=== PATIENT | female | born 1985 | race Caucasian/White ===

== ENCOUNTER 2016-06-01 21:35 | Emergency (ER) | payer OTHER ==
[2016-06-01 21:44] VITALS: BP 121/67; PULSE 85; TEMP 99; BMI 25.1
[2016-06-01] MEDS ORDERED: OXYCODONE/APAP 5/325MG COMBO TABLET PO ONE (22:05)
[2016-06-01] MEDS ORDERED: OXYCODONE/APAP 5/325MG COMBO TABLET ONE (22:07)
--- NOTE | 2016-06-01 22:33 | PDOC ---
History of Present Illness - General Chief Complaint: Ear Problem Stated Complaint: LT EAR PAIN Time Seen by Provider: 06/01/16 21:46 History Source: Patient Exam Limitations: No Limitations - History of Present Illness Initial Comments: 06/01/16 22:30 30-year-old female presents to the ED with complaints of left ear pain despite being on antibiotics and drops for the past day and a half. Patient states for the past week has had pain so went to [facility] who prescribed her amoxicillin and Ciprodex. Patient states pain has not decreased and came here for pain control. Patient denies headache, neck pain, difficulty swallowing, or fever. Timing/Duration: 1 week Severity: moderate Associated Symptoms: denies: fever/chills Past History - Past Medical History Allergies/Adverse Reactions: Allergies Allergy/AdvReac Type Severity Reaction Status Date / Time No Known Allergies Allergy Verified 06/01/16 21:38 Home Medications: Ambulatory Orders Amoxicillin - [Amoxicillin 500mg Capsule -] 500 mg PO BID 06/01/16 Asthma: Yes Disorders: Yes (kidney stones) Kidney Stones: Yes Suicide Attempt (Hx): No - Reproductive History LMP Normal: Yes Is Patient Now?: No Tubal Ligation: No - Psycho/Social/Smoking Cessation Hx Anxiety: No Suicidal Ideation: No Smoking Status: Yes Smoking History: Never smoked Have you smoked in the past 12 months: No Number of Cigarettes Smoked Daily: 0 Information on smoking cessation initiated: No Hx Alcohol Use: No Drug/Substance Use Hx: No Substance Use Type: None Patient Lives Alone: No Lives with/in: spouse/SO Review of Systems - Review of Systems Able to Perform ROS?: Yes Constitutional: No: Symptoms Reported HEENTM: Yes: Ear Pain, Ear Discharge Respiratory: No: Symptoms reported Musculoskeletal: No: Neck Pain Integumentary: No: Symptoms Reported Neurological: No: Headache *Physical Exam - Vital Signs Last Vital Signs Temp Pulse Resp BP Pulse Ox 99.0 F 85 14 121/67 100 06/01/16 21:39 06/01/16 21:39 06/01/16 21:39 06/01/16 21:39 06/01/16 21:39 - Physical Exam General Appearance: Yes: Nourished, Appropriately Dressed. No: Apparent Distress HEENT: positive: EOMI, HELEN, Pharynx Normal, TM Erythema (With otitis externa to the left ear) Neck: negative: Lymphadenopathy (R), Lymphadenopathy (L) ED Treatment Course - Medications Given in the ED: ED Medications Discontinued Medications Generic Name Dose Route Start Last Admin Trade Name [place] PRN Reason Stop Dose Admin Oxycodone/Acetaminophen 1 combo 06/01/16 22:05 06/01/16 22:08 Percocet 5/325 - PO 06/01/16 22:06 1 combo ONCE ONE Administration Medical Decision Making - Medical Decision Making 06/01/16 22:30 Patient with otitis externa and media of the left ear. Patient on correct regimen for the above. Patient ordered for Percocet here and will send patient home with 6 tablets. Patient also will be given a referral to Dr. rachel if no resolution after course of antibiotics and drops transfer text *DC/Admit/Observation/Transfer Diagnosis at time of Disposition: Otitis externa of left ear Qualifiers: Otitis externa type: diffuse Chronicity: acute Qualified Code(s): H60.312 - Diffuse otitis externa, left ear Left otitis media Qualifiers: Otitis media type: unspecified Chronicity: unspecified Qualified Code(s): H66.92 - Otitis media, unspecified, left ear - Discharge Dispostion Disposition: HOME Condition at time of disposition: Good - Referrals Referrals: Sesar Bates MD [Primary Care Provider] - Thee Humphreys MD [Staff Physician] - - Patient Instructions Printed Discharge Instructions: DI for Otitis Externa Additional Instructions: Recommend using an ear wick with cotton to decrease noise and irritation to the ear canal changing it once daily. Take antibiotics and eardrops until completion. May take Percocet as needed for discomfort Follow-up with referred ENT specialist if symptoms continue after medication
== END 2016-06-01 22:35 | disposition home or self-care (01) ==
LOC: JERFT 21:35
DX: H60.312 Diffuse otitis externa, left ear (principal); H66.92 Otitis media, unspecified, left ear
CPT/HCPCS: 99281-25

== ENCOUNTER 2016-06-04 09:51 | Emergency (ER) | payer OTHER ==
[2016-06-04 10:18] VITALS: BP 122/65; PULSE 97; TEMP 98.2; BMI 24.1
--- NOTE | 2016-06-04 10:50 | PDOC ---
History of Present Illness - General Chief Complaint: Ear Problem Stated Complaint: LT EAR PAIN (REFERRED) Time Seen by Provider: 06/04/16 10:44 - History of Present Illness Initial Comments: 06/04/16 10:50 CHIEF COMPLAINT: r/o mastoiditis, sent in by ENT HISTORY OF PRESENT ILLNESS: 30 yo F with no PMH sent to ED by ENT. Per Dr. Edwards patient had a bad otitis media with rupture of TM and otitis externa. Wick was placed for drainage but now patient is complaining of pain behind ear and jaw. ENT would like to have patient evaluated with CT to r/o mastoiditis and to start IV antibiotics. No recent travel or sick contacts. PAST MEDICAL HISTORY: Denies past medical history FAMILY HISTORY: Denies SOCIAL HISTORY: "Rare" tobacco and alcohol use. Denies illicit drug use. SURGICAL HISTORY: Denies ALLERGIES: No known drug allergies REVIEW OF SYSTEMS General/Constitutional: Denies fever or chills. Denies weakness, weight change. HEENT: Painful left ear with swelling to jaw and behind ear. Cardiovascular: Denies chest pain or shortness of breath. Respiratory: Denies cough, wheezing, or hemoptysis. Gastrointestinal: Denies nausea, vomiting, diarrhea or constipation. Denies rectal bleeding. Genitourinary: Denies dysuria, frequency, or change in urination. Musculoskeletal: Denies joint or muscle swelling or pain. Denies neck or back pain. Skin and breasts: Denies rash or easy bruising. Neurologic: Denies headache, vertigo, loss of consciousness, or loss of sensation. PHYSICAL EXAM General Appearance: Well-appearing, appropriately dressed. No apparent distress , no intoxication. HEENT: Tenderness to left mastoid and posterior left ear. Perforated L TM with erythema, crusted drainage.welling to left auditory canal with brown discharge. EOMI, PERRLA, normal voice,pharynx normal. No conjunctival pallor. No photophobia, scleral icterus. Neck: Supple. Trachea midline. No tenderness, rigidity, carotid bruit, stridor , lymphadenopathy, or thyromegaly. Respiratory/Chest: Lungs CTAB. No shortness of breath, chest tenderness, respiratory distress, accessory muscle use. No crackles, rales, rhonchi, stridor , wheezing, dullness Cardiovascular: RRR. S1, S2. No JVD, murmur, bradycardia, tachycardia. Vascular Pulses: Dorsalis-Pedis (R): 2+, Dorsalis-Pedis (L): 2+ Gastrointestinal/Abdominal: Normal bowel sounds. Abdomen soft, non-distended. No tenderness or rebound tenderness. No organomegaly, pulsatile mass, guarding , hernia, hepatomegaly, splenomegaly. Lymphatic: No adenopathy, tenderness. Musculoskeletal/Extremities: Normal inspection. FROM of all extremities, normal capillary refill. Pelvis Stable. No CVA tenderness. No tenderness to extremities, pedal edema, swelling, erythema or deformity. Integumentary: Appropriate color, dry, warm. No cyanosis, erythema, jaundice or rash Neurologic: wellness health coach II-XII intact. Fully oriented, alert. Appropriate mood/affect. Motor strength 5/5. No appreciable EOM palsy, facial droop or sensory deficit. 06/04/16 11:09 Past History - Past Medical History Allergies/Adverse Reactions: Allergies Allergy/AdvReac Type Severity Reaction Status Date / Time No Known Allergies Allergy Verified 06/04/16 10:18 Home Medications: Ambulatory Orders Amoxicillin - [Amoxicillin 500mg Capsule -] 500 mg PO BID 06/01/16 Oxycodone HCl/Acetaminophen [Percocet 5-325 mg Tablet] 1 - 2 tab PO TID PRN #6 tab MDD 3 06/01/16 Levofloxacin [Levaquin] 500 mg PO DAILY #10 tablet 06/04/16 Asthma: Yes Disorders: Yes (kidney stones) Kidney Stones: Yes Suicide Attempt (Hx): No - Reproductive History Tubal Ligation: No - Psycho/Social/Smoking Cessation Hx Anxiety: No Suicidal Ideation: No Smoking Status: Yes Smoking History: Current some day smoker Have you smoked in the past 12 months: No Number of Cigarettes Smoked Daily: 2 Information on smoking cessation initiated: No Hx Alcohol Use: Yes (SOCIAL) Drug/Substance Use Hx: No Substance Use Type: None *Physical Exam - Vital Signs Last Vital Signs Temp Pulse Resp BP Pulse Ox 98.2 F 97 H 20 122/65 98 06/04/16 10:14 06/04/16 10:14 06/04/16 10:14 06/04/16 10:14 06/04/16 10:14 ED Treatment Course - LABORATORY CBC & Chemistry Diagram: 06/04/16 11:07 06/04/16 11:07 Medical Decision Making - Medical Decision Making 06/04/16 14:04 30 yo F with no PMH sent to ED for complicated otitis media and otitis externa with possible mastoiditis for r/o bony erosion. -CBC, CMP -CT Temporal bone CT results - mastoid air cells opacified, consistent with mastoiditis. No bony erosion noted. Discussed case with ENT MD Jerry, will discharge to home with rx of Levaquin. Advised patient to take medication as prescribed and f/u with ENT and PMD. Advised patient of signs and symptoms for return to ER, patient verbalized understanding and agrees to plan. *DC/Admit/Observation/Transfer Diagnosis at time of Disposition: Mastoiditis Qualifiers: Laterality: left Qualified Code(s): H70.92 - Unspecified mastoiditis, left ear - Discharge Dispostion Disposition: HOME Admit: No - Prescriptions Prescriptions: Levofloxacin [Levaquin] 500 mg PO DAILY #10 tablet - Referrals Referrals: Sesar Bates MD [Primary Care Provider] - Thee Humphreys MD [Staff Physician] - - Patient Instructions Printed Discharge Instructions: DI for Mastoiditis-Adult Additional Instructions: Please take medications as prescribed and follow up with your primary care doctor by the end of the week. If your symptoms do not improve over the next 48 hours, or if you develop fever or chills that do not go away with Motrin or Tylenol, or you have any new or worsening symptoms, please return to the ED.
[2016-06-04 11:26] LABS: BASOPHIL 0.4 % (0-2.0); EOSINOPHIL 0.4 % (0-4.5); MCH 28.7 pg (25.7-33.7); MCHC 33.1 g/dl (32.0-36.0); MEAN CELL VOLUME 86.7 fl (80-96); MEAN PLT VOLUME 7.7 fl (7.5-11.1); NEUTROPHILS 78.8 % (42.8-82.8); PLATELET COUNT 225 K/MM3 (134-434); RDW 15.6 % (11.6-15.6); WHITE BLOOD COUNT 7.8 K/mm3 (4.0-10.0)
[2016-06-04 12:26] LABS: ALBUMIN 3.4 g/dl (3.4-5.0); ANION GAP 9 (8-16); CALCIUM 8.7 mg/dL (8.5-10.1); CO2 29 mmol/L (21-32); GLUCOSE,RANDOM 97 mg/dL (74-106); SGPT/ALT 15 U/L (12-78)
[2016-06-04 12:28] LABS: ALK PHOS 64 U/L (45-117); BILIRUBIN,TOTAL 0.4 mg/dL (0.2-1.0); CREATININE 0.6 mg/dL (0.55-1.02); TOT PROT 7.4 g/dl (6.4-8.2)
[2016-06-04 12:30] LABS: SGOT/AST 24 U/L (15-37)
[2016-06-04] MEDS ORDERED: VANCOMYCIN 1,000 MG in DEXTROSE 5%-WATER - 250 ML IVPB ONE (13:38)
[2016-06-04] MEDS ORDERED: CEFTRIAXONE 1 GM in DEXTROSE 5%-WATER - 50 ML IVPB ONE (13:55)
[2016-06-04] MEDS ORDERED: cefTRIAXone SODIUM 1 GM VIAL ONE (13:56)
[2016-06-04] MEDS ORDERED: VANCOMYCIN 1 GRAM (PRE-DOCKED) 250 ML IVPB ONE (14:28)
== END 2016-06-04 15:29 | disposition home or self-care (01) ==
LOC: JER 09:51
DX: H70.92 Unspecified mastoiditis, left ear (principal); F17.210 Nicotine dependence, cigarettes, uncomplicated
CPT/HCPCS: 36415; 70480-TC; 80053; 84703; 85025; 96365; 96368; 99282-25

== ENCOUNTER 2017-07-21 15:35 | Emergency (ER) | payer SELFPAY ==
[2017-07-21 15:43] VITALS: BP 154/65; PULSE 105; TEMP 98.2; BMI 24.7
[2017-07-21] MEDS ORDERED: ACETAMINOPHEN 325 MG TABLET (FP) PO ONE (15:45)
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
[2017-07-21] MEDS ORDERED: DIPHTH,PERTUSS(ACELL),TET 0.5 ML DISP.SYRIN IM ONE (17:32)
[2017-07-21 17:47] LABS: URINE APPEARANCE SLCLOUDY; URINE BILIRUBIN NEGATIVE (NEGATIVE); URINE BLOOD 2+ (NEGATIVE); URINE COLOR LTYELLOW; URINE GLUCOSE (UA) NEGATIVE (NEGATIVE); URINE KETONE NEGATIVE (NEGATIVE); URINE NITRITE NEGATIVE (NEGATIVE); URINE PROTEIN NEGATIVE (NEGATIVE)
[2017-07-21 17:49] LABS: URINE LEUK ESTERASE 1+ (NEGATIVE)
[2017-07-21 17:58] LABS: BASO % 0.5 % (0-2.0); EOS % 0.6 % (0-4.5); HEMATOCRIT 40.3 % (32.4-45.2); HEMOGLOBIN 13.9 GM/dL (10.7-15.3); MCHC 34.4 g/dl (32.0-36.0); MEAN CELL VOLUME 90.2 fl (80-96); MEAN PLT VOLUME 7.8 fl (7.5-11.1); MONO % 8.1 % (3.8-10.2); NEUT % 69.8 % (42.8-82.8); PLATELET COUNT 315 K/MM3 (134-434); RBC 4.47 M/mm3 (3.60-5.2); RDW 15.2 % (11.6-15.6); WHITE BLOOD COUNT 7.7 K/mm3 (4.0-10.0)
[2017-07-21 18:20] LABS: EPI CELLS RARE /HPF (FEW); URINE MUCUS RARE
[2017-07-21] MEDS ORDERED: KETOROLAC TROMETHAMINE 15 MG/ML VIAL IM ONE (19:11)
[2017-07-21] MEDS ORDERED: KETOROLAC TROMETHAMINE 15 MG/ML VIAL ONE (19:15)
== END 2017-07-21 19:20 | disposition home or self-care (01) ==
LOC: JERFT 15:35
PROC: 3E0234Z Introduction of Serum, Toxoid and Vaccine into Muscle, Percutaneous Approach (ICD-10-PCS; principal; 2017-07-21)
PROC: 3E0233Z Introduction of Anti-inflammatory into Muscle, Percutaneous Approach (ICD-10-PCS; 2017-07-21)
DX: S09.8XXA Other specified injuries of head, initial encounter (principal); S70.12XA Contusion of left thigh, initial encounter; S90.511A Abrasion, right ankle, initial encounter; S90.512A Abrasion, left ankle, initial encounter; V09.09XA Pedestrian injured in nontraffic accident involving other motor vehicles, initial encounter; Y92.414 Local residential or business street as the place of occurrence of the external cause; Y93.89 Activity, other specified; Y99.8 Other external cause status
CPT/HCPCS: 36415; 70450-TC; 72100-TC-FY; 73523-TC-FY; 73552-TC-LT-FY; 73610-TC-LT-FY; 73610-TC-RT-FY; 73630-TC-LT; 73630-TC-RT-FY; 81003; 81015; 84703; 85025; 90715; 99282-25

== ENCOUNTER 2018-04-05 18:13 | Emergency (ER) | payer SELFPAY ==
[2018-04-05 18:40] VITALS: BP 120/73; PULSE 81; TEMP 98.6; BMI 23.8
[2018-04-05 18:57] LABS: URINE APPEARANCE CLOUDY; URINE BILIRUBIN NEGATIVE (<2.0 mg/dL); URINE COLOR YELLOW; URINE GLUCOSE (UA) NEGATIVE (NEGATIVE); URINE KETONE NEGATIVE (NEGATIVE); URINE LEUK ESTERASE TRACE (NEGATIVE); URINE NITRITE NEGATIVE (NEGATIVE); URINE PROTEIN NEGATIVE (NEGATIVE); URINE UROBILINOGEN NEGATIVE mg/dL (0.2-1.0)
[2018-04-05 19:04] LABS: EPI CELLS RARE /HPF (FEW)
[2018-04-05 19:25] LABS: HCG,QUALITATIVE URINE Negative
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
== END 2018-04-05 20:45 | disposition home or self-care (01) ==
LOC: JER 18:13
DX: N93.9 Abnormal uterine and vaginal bleeding, unspecified (principal)
CPT/HCPCS: 81003; 81015; 84703; 87086; 99282-25

== ENCOUNTER 2020-02-13 20:41 | Emergency (ER) | payer OTHER ==
--- NOTE | 2020-02-13 20:47 | PDOC ---
Rapid Medical Evaluation Time Seen by Provider: 02/13/20 20:45 Medical Evaluation: Allergies Allergy/AdvReac Type Severity Reaction Status Date / Time No Known Allergies Allergy Verified 04/05/18 18:36 02/13/20 20:45 34 year old female complaining of vaginal bleeding x 3 weeks. 5 tampons a day. PE: Differed to ED provider VSS Plan: Labs UA UC Pt to precede to ED for further eval
[2020-02-13 20:49] VITALS: BP 119/71; PULSE 89; TEMP 98.5; BMI 24.6
--- OUTSIDE RECORDS SUMMARY | 2020-02-13 20:56 | XMS ---
:1985 [facility] Organization [facility] Care [facility] Providers Name Role Phone SEVERINO HOGAN MD Unavailable Unavailable MD JANIE Unavailable Unavailable Re-disclosure Warning The records that you are about to access may contain information from federally- assisted alcohol or drug abuse programs. If such information is present, then the following federally mandated warning applies: This information has been disclosed to you from records protected by federal confidentiality rules (42 CFR part 2). The federal rules prohibit you from making any further disclosure of this information unless further disclosure is expressly permitted by the written consent of the person to whom it pertains or as otherwise permitted by 42 CFR part 2. A general authorization for the release of medical or other information is NOT sufficient for this purpose. The Federal rules restrict any use of the information to criminally investigate or prosecute any alcohol or drug abuse patient.The records that you are about to access may contain highly sensitive health information, the redisclosure of which is protected by Article 27-F of the [facility] Public Health law. If you continue you may haveaccess to information: Regarding HIV / AIDS; Provided by facilities licensed or operated by the [facility] Office of Mental Health; or Provided by the [facility] Office for People With Developmental Disabilities. If such information is present, then the following [facility] mandated warning applies: This information has been disclosed to you from confidential records which are protected by state law. State law prohibits you from making any further disclosure of this information without the specific written consent of the person to whom it pertains, or as otherwise permitted by law. Any unauthorized further disclosure in violation of state law may result in a fine or mcfp sentence or both. A general authorization for the release of medical or other information is NOT sufficient authorization for further disclosure. Encounters Encounter Providers Location Date Indications Data Source(s ) Outpatient 08/01/2019 [facility] 07:00:00 PM ([facility]) Outpatient 06/03/2019 [facility]ART 07:50:00 PM ([facility]) Inpatient Attender: SEVERINO ST-3S 01/24/2019 [facility] OROSZAdmitter: KEVIN 10:08:00 PM Hos rodrick DARIUYOUMDJICHRISTY EDT - 02/03/2019 10:23:00 PM EDT Patient discharged. Outpatient [facility] 01/24/2019 09:56:00 PM EDT - 019 [facility] 10:23:00 PM EDT Patient discharged. Outpatient [facility] 01/24/2019 09:54:00 PM EDT [facility] Admission cancelled. Disregard status an d admitted date. Medications Medication Brand Start Product Dose Route Administrative Pharmacy [facility] Indications Reaction Description Data Name Date Form Instructions Instructions Source(s) 24 HR Wellbu 1.0 Oral active NETSMART Bupropion shadi 2019 Table (Nadeem jackson Hydrochlori XL 04:00: t er Mu-Ism castillo de 150 MG 00 AM Community Extended EDT Services) Release Oral Tablet [Wellbutrin ] Mirtazapine Remero 1.0 Oral active NE TSMART 15 MG Oral n 2019 Table ([employer] [facility] Tablet 04:00: t er Nondenominational [Remeron] 00 AM Community EDT Services) Risperidone Risper 1.0 Oral active NE TSMART 2 MG Oral MIKHAIL 2019 Table ([facility] t Tablet 04:00: t er Nondenominational [Risperdal] 00 AM [facility] EDT Services) Mirtazapine Remero 1.0 Oral active NE TSMART 15 MG Oral n 2019 Table ([employer] st Tablet 04:00: t er Nondenominational [Remeron] 00 AM Community EDT Services) 24 HR Wellbu 1.0 Oral active NETSMART Bupropion shadi 2020 Table ([facility] t Hydrochlori XL 04:00: t er Mu-Ism castillo de 150 MG 00 AM Community Extended EDT Services) Release Oral Tablet [Wellbutrin ] Risperidone Risper 1.0 Oral active NE TSMART 2 MG Oral MIKHAIL 2019 Table ([facility] t Tablet 04:00: t er Nondenominational [Risperdal] 00 AM Communi ty EDT Services) 24 HR Intuni 1.0 Oral active NET[facility]ART Guanfacine v 2019 Table ([facility] 1 MG 04:00: t er Nondenominational Extended 00 AM Community Release EDT Services) Oral Tablet [Intuniv] Risperidone Risper 1.0 Oral active NE TSMART 2 MG Oral MIKHAIL 2019 Table ([facility] t Tablet 04:00: t er Nondenominational [Risperdal] 00 AM Communi ty EDT Services) Mirtazapine Remero 1.0 Oral active NE TSMART 15 MG Oral n 2019 Table ([facility] Tablet 04:00: t er Nondenominational [Remeron] 00 AM Community EDT Services) Mirtazapine Remero 1.0 Oral active NE TSMART 15 MG Oral n 2019 Table ([facility] Tablet 04:00: t er Nondenominational [Remeron] 00 AM Community EDT Services) Risperidone Risper 10/11/ 1.0 Oral active NE TSMART 2 MG Oral MIKHAIL 2019 Table ([facility] t Tablet 04:00: t er Nondenominational [Risperdal] 00 AM Communi ty EDT Services) Risperidone Risper 09/27/ 1.0 Oral active NE TSMART 1 MG Oral MIKHAIL 2019 Table ([facility] t Tablet 04:00: t er Nondenominational [Risperdal] 00 AM Communi ty EDT Services) Risperidone Risper 08/30/ 1.0 Oral active NE TSMART 0.5 MG Oral MIKHAIL 2019 Table (Danielch est Tablet 04:00: t er Nondenominational [Risperdal] 00 AM Communi ty EDT Services) Prazosin 1 [place] 02/02/ ORAL complet Sa int MG Oral in HCl 2019 ed [facility] - [facility] 12[facility]: [facility] ORAL 00 AM Capsul EDT e Insurance Providers Payer name Policy type Policy ID Covered Covered democrat's Policy P alisha / Coverage democrat ID relationship to Adhikari Inf ormation type adhikari MVP [place]ICA[place] [id number] SP [id number] HMO MEDICAID [id number] SP [id number] MVP HEALTH [id number] SP [id number] CARE [place] [id number] SP [id number] HEALTH-MVP SELF PAY 00 Self 00 MEDICAID INP [id number] Self [id number] T PSYCH [facility] MVP [id number] Self [id number] HEALTHPLAN [place] Problems, Conditions, and Diagnoses Code Display Name Description Problem Type Effective Data Dates Source(s) [id number] 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 NETSMART stress disorder stress disorder 03:00:00 PM ([facility]) F32.2 Major depressive Major depressive Diagnosis 02/02/2019 Sa int disorder, single disorder, single 04:12:00 PM V incents episode, severe episode, severe EDT Hosp ital without psychotic without psychotic features features Results ID Date Data Source [id number] 01/11/2020 04:05:00 PM EDT [facility] Name Value Range Interpretation Description Data Sup porting Code Source(s) Document(s ) SARS [facility] coronavirus 2 RNA This lab was ordered by [facility] Ac ct Bill Inter and reported by [facility]. Procedure Vital Signs ID Date Data Source UNK Name Value Range Interpretation Code Description Data Source(s) Diastolic blood 64 mmHg 64 mmHg [facility] Systolic blood 97 mmHg 97 mmHg [facility] Heart rate 72 bpm 72 bpm [facility] Diastolic blood 56 mmHg 56 mmHg [facility] Systolic blood 88 mmHg 88 mmHg [facility] Respiratory rate 18 bpm 18 bpm [facility] Heart rate 62 bpm 62 bpm [facility] Body temperature 97.7 Fahrenheit 97.7 Fahrenh t [facility] Diastolic blood 66 mmHg 66 mmHg [facility] Systolic blood 102 mmHg 102 mmHg [facility] Respiratory rate 18 bpm 18 bpm [facility] Heart rate 84 bpm 84 bpm [facility] Body temperature 98.7 Fahrenheit 98.7 Fahrenhei t [facility] Diastolic blood 62 mmHg 62 mmHg [facility] Systolic blood 99 mmHg 99 mmHg [facility] Respiratory rate 18 bpm 18 bpm [facility] Heart rate 76 bpm 76 bpm [facility] Body temperature 98.5 Fahrenheit 98.5 Fahrenhei t [facility] Diastolic blood 67 mmHg 67 mmHg [facility] Systolic blood 101 mmHg 101 mmHg [facility] Respiratory rate 18 bpm 18 bpm [facility] Heart rate 67 bpm 67 bpm [facility] Body temperature 98.1 Fahrenheit 98.1 Fahrenhei t [facility] Body temperature 97.2 Fahrenheit 97.2 Fahrenhei t [facility] Diastolic blood 61 mmHg 61 mmHg [facility] Systolic blood 91 mmHg 91 mmHg [facility] Respiratory rate 18 bpm 18 bpm [facility] Heart rate 69 bpm 69 bpm [facility] Respiratory rate 18 bpm 18 bpm [facility] Diastolic blood 67 mmHg 67 mmHg [facility] Systolic blood 107 mmHg 107 mmHg [facility] Heart rate 79 bpm 79 bpm [facility] Diastolic blood 55 mmHg 55 mmHg [facility] Systolic blood 89 mmHg 89 mmHg [facility] Respiratory rate 18 bpm 18 bpm [facility] Heart rate 68 bpm 68 bpm [facility] Body weight 144 lbs 144 lbs [facility] Diastolic blood 62 mmHg 62 mmHg [facility] Systolic blood 91 mmHg 91 mmHg [facility] Respiratory rate 16 bpm 16 bpm [facility] Heart rate 67 bpm 67 bpm [facility] Body temperature 97.7 Fahrenheit 97.7 Fahrenhei t [facility] Respiratory rate 18 bpm 18 bpm [facility] Body temperature 98.5 Fahrenheit 98.5 Fahrenhei t [facility] Diastolic blood 73 mmHg 73 mmHg [facility] Systolic blood 111 mmHg 111 mmHg [facility] Heart rate 81 bpm 81 bpm [facility] Diastolic blood 68 mmHg 68 mmHg [facility] Systolic blood 104 mmHg 104 mmHg [facility] Heart rate 79 bpm 79 bpm [facility] Diastolic blood 64 mmHg 64 mmHg [facility] Systolic blood 97 mmHg 97 mmHg [facility] Respiratory rate 18 bpm 18 bpm [facility] Heart rate 77 bpm 77 bpm [facility] Body temperature 97.9 Fahrenheit 97.9 Fahrenhei t [facility] Diastolic blood 67 mmHg 67 mmHg [facility] Systolic blood 104 mmHg 104 mmHg [facility] Heart rate 82 bpm 82 bpm [facility] Diastolic blood 69 mmHg 69 mmHg [facility] Systolic blood 103 mmHg 103 mmHg [facility] Respiratory rate 18 bpm 18 bpm [facility] Heart rate 72 bpm 72 bpm [facility] Diastolic blood 69 mmHg 69 mmHg [facility] Systolic blood 106 mmHg 106 mmHg [facility] Respiratory rate 20 bpm 20 bpm [facility] Heart rate 74 bpm 74 bpm [facility] Diastolic blood 67 mmHg 67 mmHg [facility] Systolic blood 101 mmHg 101 mmHg [facility] Respiratory rate 18 bpm 18 bpm [facility] Heart rate 79 bpm 79 bpm [facility] Body temperature 98.1 Fahrenheit 98.1 Fahrenhei t [facility]
--- NOTE | 2020-02-13 21:27 | PDOC ---
History of Present Illness <Celestina Mensah - Last Filed: 02/14/20 02:21> - History of Present Illness Initial Comments: 34 , h/o substance abuse, s/p tubal ligation, fibroid, presents with vaginal bleeding and pelvic pain for 3 weeks. Patient reports pain is 7/10, located in lower left abdomen/ suprapubic region, radiates around flank towards back, not taking anything for it. Soaking 5 pads per day in blood, notices clots in blood. Reports that she is not currently sexually active. Otherwise denies CP, SOB, N/V/D, fever or chills. Constitutional: No Weight Change, No Fever, No Chills, No Night Sweats, No Fatigue, No Malaise ENT/Mouth: No Hearing Changes, No Ear Pain, No Nasal Congestion, No Sinus Pain, No Hoarseness, No sore throat, No Rhinorrhea, No Swallowing Difficulty Eyes: No Eye Pain, No Swelling, No Redness, No Foreign Body, No Discharge, No Vision Changes Cardiovascular: No Chest Pain, No SOB, No PND, No Dyspnea on Exertion, No Orthopnea, No Claudication, No Edema, No Palpitations Respiratory: No Cough, No Sputum, No Wheezing, No Smoke Exposure, No Dyspnea Gastrointestinal: No Nausea, No Vomiting, No Diarrhea, No Constipation, No Pain, No Heartburn, No Anorexia, No Dysphagia, No Hematochezia, No Melena, No Flatulence, No Jaundice Genitourinary: No Dysmenorrhea, No DUB, No Dyspareunia, No Dysuria, No Urinary Frequency, No Hematuria, No Urinary Incontinence, No Urgency, No Flank Pain, No Urinary Flow Changes, No Hesitancy Musculoskeletal: No Arthralgias, No Myalgias, No Joint Swelling, No Joint Stiffness, No Back Pain, No Neck Pain, No Injury History Skin: No Skin Lesions, No Pruritis, No Hair Changes, No Breast/Skin Changes, No Nipple Discharge Neuro: No Weakness, No Numbness, No Paresthesias, No Loss of Consciousness, No Syncope, No Dizziness, No Headache, No Coordination Changes, No Recent Falls Psych: No Anxiety/Panic, No Depression, No Insomnia, No Personality Changes, No Delusions, No Rumination, No SI/HI/AH/VH, No Social Issues, No Memory Changes, No Violence/Abuse Hx., No Eating Concerns Heme/Lymph: No Bruising, No Bleeding, No Transfusions History, No Lymphadenopathy Endocrine: No Polyuria, No Polydipsia, No Temperature Intolerance <Jhon Styles - Last Filed: 02/18/20 15:24> - General Chief Complaint: Vaginal Bleeding Stated Complaint: VAGINAL BLEEDING Time Seen by Provider: 02/13/20 20:45 Past History <Celestina Mensah - Last Filed: 02/14/20 02:21> - Medical History Asthma: Yes COPD: No Diabetes: No Disorders: Yes (kidney stones) Kidney Stones: Yes - Reproductive History Is Patient Now?: No Tubal Ligation: No - Psycho-Social/Smoking History Smoking Status: Yes Smoking History: Current every day smoker Have you smoked in the past 12 months: Yes Number of Cigarettes Smoked Daily: 4 Information on smoking cessation initiated: No - Substance Abuse Hx (Audit-C & DAST Scrn) How often the patient has a drink containing alcohol: 2-3 times / week Number of drinks the patient has on a typical day: 7 to 9 How often the patient has six or more drinks on one occasion: Weekly Score: In Men: 4 or > Positive; In Women: 3 or > Positive: 9 Screen Result (Pos requires Nsg. Audit-10AR): Positive In the last yr the pt used illegal drug/Rx for NonMed reason: Yes Score: Yes response is considered Positive: 1 Screen Result (Positive result requires Nsg. DAST-10): Positive <Jhon Styles - Last Filed: 02/18/20 15:24> - Medical History Allergies/Adverse Reactions: Allergies Allergy/AdvReac Type Severity Reaction Status Date / Time No Known Allergies Allergy Verified 02/15/20 15:58 Home Medications: Ambulatory Orders Cephalexin Monohydrate [Keflex -] 500 mg PO BID 7 Days #14 capsule 02/16/20 *Physical Exam - Vital Signs Last Vital Signs Temp Pulse Resp BP Pulse Ox 98.5 F 89 19 119/71 99 02/13/20 20:43 02/13/20 20:43 02/13/20 20:43 02/13/20 20:43 02/13/20 20:43 <Celestina Mensah - Last Filed: 02/14/20 02:21> - Vital Signs Last Vital Signs Temp Pulse Resp BP Pulse Ox 98.5 F 89 19 119/71 99 02/13/20 20:43 02/13/20 20:43 02/13/20 20:43 02/13/20 20:43 02/13/20 20:43 - Physical Exam General Appearance: Yes: Nourished, Appropriately Dressed HEENT: positive: EOMI, HELEN, Normal ENT Inspection, Normal Voice, Symmetrical, TMs Normal, Pharynx Normal Neck: positive: Trachea midline, Normal Thyroid Respiratory/Chest: positive: Lungs Clear, Normal Breath Sounds Cardiovascular: positive: Regular Rhythm, Regular Rate, S1, S2 Female Pelvic Exam: positive: normal external exam, cervical os closed, vaginal bleeding, other (blood in vaginal vault, tenderness in left adnexa on bimanual, small mass appreciated ) Gastrointestinal/Abdominal: positive: Tender, Flat, Soft Musculoskeletal: positive: Normal Inspection Extremity: positive: Normal Capillary Refill Integumentary: positive: Normal Color, Dry, Warm Neurologic: positive: group activities aide II-XII NML intact, Fully Oriented, Alert, Normal Mood/Affect, Normal Response, Motor Strength 5/5 <Jhon Styles - Last Filed: 02/18/20 15:24> ED Treatment Course - LABORATORY CBC & Chemistry Diagram: 02/13/20 22:15 02/13/20 22:15 - ADDITIONAL ORDERS Additional order review: Laboratory Results 02/14/20 02/13/20 02/13/20 01:19 22:56 22:56 PT with INR 13.70 H INR 1.17 H PTT (Actin FS) 27.6 Sodium Potassium Chloride Carbon Dioxide Anion Gap BUN Creatinine Est GFR (CKD-EPI)AfAm Est GFR (CKD-EPI)NonAf Random Glucose Calcium Total Bilirubin AST ALT Alkaline Phosphatase Total Protein Albumin Urine Color Yellow Urine Appearance Clear Urine pH 6.5 Ur Specific Joanna 1.025 Urine Protein Negative Urine Glucose (UA) Negative Urine Ketones 1+ H Urine Blood 3+ H Urine Nitrite Negative Urine Bilirubin Negative Urine Urobilinogen 1.0 Ur Leukocyte Esterase 1+ H Urine WBC (Auto) 75 Urine RBC (Auto) 2007 Urine Casts (Auto) 1 U Epithel Cells (Auto) 26 Urine Bacteria (Auto) 530 Urine HCG, Qual Negative Blood Type O POSITIVE Antibody Screen Negative 02/13/20 22:15 PT with INR INR PTT (Actin FS) Sodium 140 Potassium 3.5 Chloride 108 H Carbon Dioxide 28 Anion Gap 5 L BUN 15.4 Creatinine 0.9 Est GFR (CKD-EPI)AfAm 96.69 Est GFR (CKD-EPI)NonAf 83.42 Random Glucose 88 Calcium 8.5 Total Bilirubin 0.4 AST 13 L ALT 19 Alkaline Phosphatase 84 Total Protein 6.9 Albumin 3.6 Urine Color Urine Appearance Urine pH Ur Specific Joanna Urine Protein Urine Glucose (UA) Urine Ketones Urine Blood Urine Nitrite Urine Bilirubin Urine Urobilinogen Ur Leukocyte Esterase Urine WBC (Auto) Urine RBC (Auto) Urine Casts (Auto) U Epithel Cells (Auto) Urine Bacteria (Auto) Urine HCG, Qual Blood Type Antibody Screen 02/13/20 22:15 RBC 3.50 L MCV 88.5 MCHC 33.9 RDW 15.9 H MPV 8.4 Neutrophils % 64.3 Lymphocytes % 25.7 Monocytes % 7.7 Eosinophils % 1.1 Basophils % 1.2 <Celestina Mensah - Last Filed: 02/14/20 02:21> - LABORATORY CBC & Chemistry Diagram: 02/13/20 22:15 02/13/20 22:15 <Jhon Styles - Last Filed: 02/18/20 15:24> Medical Decision Making - Medical Decision Making 34 with 3 weeks of vaginal bleeding and abdominal/ pelvic pain - vitals wnl - exam reveals blood in vaginal vault, small mass appreciated with tenderness in left adnexa on bimanual - will do CBC, CMP, coags, type and screen, transvaginal ultrasound reassess: - Hgb in 10s 02/14/20 00:51 US shows thickened endometrial stripe, no masses, no free fluid 02/18/20 15:23 Patient feels better, wishes to return home Will DC patient to f/u with OBGYN <Jhon Styles - Last Filed: 02/18/20 15:24> Discharge <Celestina Mensah - Last Filed: 02/14/20 02:21> - Discharge Information Problems reviewed: Yes <Jhon Styles - Last Filed: 02/18/20 15:24> - Discharge Information Clinical Impression/Diagnosis: Vaginal bleeding Condition: Stable Disposition: HOME - Additional Discharge Information Prescriptions: Cephalexin Monohydrate [Keflex -] 500 mg PO BID 7 Days #14 capsule - Follow up/Referral Referrals: Navjot Bates MD [Primary Care Provider] - - Patient Discharge Instructions Additional Instructions: Discharge Instructions: You were seen in the emergency department for heavy vaginal bleeding. Your blood tests did not show any concerning findings. Your ultrasound also did not indicate any concerning cause for the abnormal bleeding. You will need to follow up with gynecology for additional evaluation within the next week. You may call the gynecology clinic at [facility] [address] [place] [address] Seek immediate medical care if you have worsening symptoms, you have lightheadedness or faint, you become short of breath, you are soaking through more than 2 pads per hour for at least 2 hours, or you have any other medical emergency. - Post Discharge Activity
[2020-02-13 22:21] LABS: BASO % 1.2 % (0-2.0); EOS % 1.1 % (0-4.5); HEMOGLOBIN 10.5 GM/dL (10.7-15.3); LYMPH % 25.7 % (8-40); MCHC 33.9 g/dl (32.0-36.0); MEAN CELL VOLUME 88.5 fl (80-96); MEAN PLT VOLUME 8.4 fl (7.5-11.1); MONO % 7.7 % (3.8-10.2); NEUT % 64.3 % (42.8-82.8); PLATELET COUNT 253 K/MM3 (134-434); RDW 15.9 % (11.6-15.6); WHITE BLOOD COUNT 5.7 K/mm3 (4.0-10.0)
[2020-02-13 22:54] LABS: ALBUMIN 3.6 g/dl (3.4-5.0); BILIRUBIN,TOTAL 0.4 mg/dL (0.2-1); BLOOD UREA NITROGEN 15.4 mg/dL (7-18); CALCIUM 8.5 mg/dL (8.5-10.1); CREATININE 0.9 mg/dL (0.55-1.3); POTASSIUM 3.5 mmol/L (3.5-5.1); TOT PROT 6.9 g/dl (6.4-8.2)
--- NOTE | 2020-02-13 22:58 | PDOC ---
Attending Attestation - Resident Resident Name: Jhon Styles - ED Attending Attestation I have performed the following: I have examined & evaluated the patient, The case was reviewed & discussed with the resident, I agree w/resident's findings & plan, Exceptions are as noted - HPI HPI: 34 yo F history PCP and cocaine abuse, prior tubal ligation, fibroids presents with vaginal bleeding and pelvic pain for 3 weeks. She states she is medina ving pelvic cramping pain. Using 5 pads per day, +clots. Denies fever, N/V/D, lightheadedness. - Physicial Exam PE: GENERAL: Awake, alert, and fully oriented, in no acute distress HEAD: No signs of trauma EYES: PERRLA, EOMI, sclera anicteric, conjunctiva clear ENT: Auricles normal inspection, hearing grossly normal, nares patent, oropharynx clear without exudates. Moist mucosa NECK: Normal ROM, supple, no lymphadenopathy, JVD, or masses LUNGS: Breath sounds equal, clear to auscultation bilaterally. No wheezes, and no crackles HEART: Regular rate and rhythm, normal S1 and S2, no murmurs, rubs or gallops ABDOMEN: Soft, +mild suprapubic tenderness, normoactive bowel sounds. No guarding, no rebound. No masses EXTREMITIES: Normal range of motion, no edema. No clubbing or cyanosis. No cords, erythema, or tenderness NEUROLOGICAL: Cranial nerves II through XII grossly intact. Normal speech, normal gait. Motor and sensation intact SKIN: Warm, dry, normal turgor, no rashes or lesions noted. 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 Presenting with heavy bleeding for 3 weeks. Will check ultrasound to further evaluate. Intern Product Marketing Manager f/u. Discharge - Discharge Information Problems reviewed: Yes Clinical Impression/Diagnosis: Vaginal bleeding Condition: Stable Disposition: HOME - Follow up/Referral Referrals: Navjot Bates MD [Primary Care Provider] - - Patient Discharge Instructions Additional Instructions: Discharge Instructions: You were seen in the emergency department for heavy vaginal bleeding. Your blood tests did not show any concerning findings. Your ultrasound also did not indicate any concerning cause for the abnormal bleeding. You will need to follow up with gynecology for additional evaluation within the next week. You may call the gynecology clinic at [facility] [address] [place], [place] [address], [place] Seek immediate medical care if you have worsening symptoms, you have lightheadedness or faint, you become short of breath, you are soaking through more than 2 pads per hour for at least 2 hours, or you have any other medical emergency. - Post Discharge Activity
[2020-02-13 23:22] LABS: INR 1.17 (0.83-1.09); PROTHROMBIN TIME (PATIENT) 13.7 SEC (9.7-13.0)
[2020-02-13 23:25] LABS: ACTIVATED PTT 27.6 SECONDS (25.2-36.5)
[2020-02-14 01:58] LABS: EPI CELLS 26 /uL (0-25.1); HCG,QUALITATIVE URINE Negative; HYALINE CASTS 1 /uL (0-3.1); PH,URINE 6.5 (5.0-8.0); URINE APPEARANCE CLEAR; URINE BACTERIA 530 /uL (0-1359); URINE BILIRUBIN NEGATIVE (NEGATIVE); URINE COLOR YELLOW; URINE GLUCOSE (UA) NEGATIVE (NEGATIVE); URINE KETONE 1+ (NEGATIVE); URINE LEUK ESTERASE 1+ (NEGATIVE); URINE NITRITE NEGATIVE (NEGATIVE); URINE PROTEIN NEGATIVE (NEGATIVE); URINE RBC 2007 /uL (0-23.9); URINE WBC 75 /uL (0-25.8)
== END 2020-02-14 03:18 | disposition home or self-care (01) ==
LOC: JER 20:41
DX: N93.9 Abnormal uterine and vaginal bleeding, unspecified (principal)
CPT/HCPCS: 36415; 76830-TC; 80053; 81003; 84703; 85025; 85610; 85730; 86850; 86900; 86901; 87086; 87186; 99284-25

== ENCOUNTER 2020-02-15 15:49 | Emergency (ER) | payer OTHER ==
[2020-02-15] MEDS ORDERED: SODIUM CHLORIDE 1,000 ML IV STA (15:57)
[2020-02-15 15:58] VITALS: BP 113/72; PULSE 75; TEMP 97.9; BMI 23.0
--- NOTE | 2020-02-15 16:00 | PDOC ---
Rapid Medical Evaluation Chief Complaint: Vaginal Bleeding Time Seen by Provider: 02/15/20 15:57 Medical Evaluation: Allergies Allergy/AdvReac Type Severity Reaction Status Date / Time No Known Allergies Allergy Verified 02/15/20 15:58 Vital Signs Temp Pulse Resp BP Pulse Ox 97.9 F 75 16 113/72 100 02/15/20 15:55 02/15/20 15:55 02/15/20 15:55 02/15/20 15:55 02/15/20 15:55 02/15/20 15:58 I performed a brief in-person evaluation of this patient. Pt is a 34 y/o female with heavy vaginal bleeding since 02/07/20. Saturating 5 tampons every day. Pt states she feels dizzy. Pertinent physical exam findings: speaking in full sentences. nontoxic appearing I have ordered the following: labs, saline lock, 1L of NS, imaging deferred to treating provider's discretion Patient to proceed to ED for further evaluation. Discharge Disposition - Diagnosis Vaginal bleeding - Referrals - Patient Instructions - Post Discharge Activity
--- NOTE | 2020-02-15 17:13 | PDOC ---
History of Present Illness - General Chief Complaint: Vaginal Bleeding Stated Complaint: VAGINAL BLEED Time Seen by Provider: 02/15/20 15:57 History Source: Patient - History of Present Illness Timing/Duration: reports: constant Past History - Medical History Allergies/Adverse Reactions: Allergies Allergy/AdvReac Type Severity Reaction Status Date / Time No Known Allergies Allergy Verified 02/15/20 15:58 Home Medications: Ambulatory Orders NK [No Known Home Medication] 07/21/17 Asthma: Yes COPD: No Diabetes: No Disorders: Yes (kidney stones) Kidney Stones: Yes - Reproductive History Is Patient Now?: No Tubal Ligation: No - Psycho-Social/Smoking History Smoking Status: Yes Smoking History: Current every day smoker Have you smoked in the past 12 months: Yes Number of Cigarettes Smoked Daily: 5 Information on smoking cessation initiated: No - Substance Abuse Hx (Audit-C & DAST Scrn) How often the patient has a drink containing alcohol: 2-4 times / month Number of drinks the patient has on a typical day: 5 or 6 How often the patient has six or more drinks on one occasion: Never Score: In Men: 4 or > Positive; In Women: 3 or > Positive: 4 Screen Result (Pos requires Nsg. Audit-10AR): Positive In the last yr the pt used illegal drug/Rx for NonMed reason: No Score: Yes response is considered Positive: 0 Screen Result (Positive result requires Nsg. DAST-10): Negative Review of Systems - Review of Systems Constitutional: No: Weakness ABD/GI: No: Nausea, Vomiting, Abdominal cramping *Physical Exam - Vital Signs Last Vital Signs Temp Pulse Resp BP Pulse Ox 97.9 F 75 16 113/72 100 02/15/20 15:55 02/15/20 15:55 02/15/20 15:55 02/15/20 15:55 02/15/20 15:55 - Physical Exam General Appearance: Yes: Appropriately Dressed. No: Apparent Distress HEENT: positive: Normal Voice Neck: positive: Supple Respiratory/Chest: negative: Respiratory Distress Gastrointestinal/Abdominal: positive: Soft. negative: Tender Integumentary: positive: Dry, Warm Neurologic: positive: Fully Oriented, Alert, Normal Mood/Affect Medical Decision Making - Medical Decision Making 02/15/20 17:14 34 yo F, , h/o PCP and cocaine abuse, prior tubal ligation, fibroids, presents with for second ER visit with vaginal bleeding. States she got her menses 7 days ago which usually last for 5 days but that she ihas continued to bleed, 2-3 pads in a 24-hour period. No abdominal pain, nausea ,vomiting, dizziness or weakness. Hemoglobin around 10 yesterday with unremarkable labs otherwise. Patient well-appearing and stable. No further intervention needed in ED. Dc to follow-up with pt's REHAB DIRECTOR as discussed in length with patient Discharge - Discharge Information Problems reviewed: Yes Clinical Impression/Diagnosis: DUB (dysfunctional uterine bleeding) Condition: Good Disposition: HOME - Follow up/Referral Referrals: Navjot Bates MD [Primary Care Provider] - - Patient Discharge Instructions Additional Instructions: He was seen in the ED for the same symptoms yesterday a.m. blood count was 10 We had an extensive conversation with you today informing you that there is no intervention needed on an emergent basis and that you should follow-up with your REHAB DIRECTOR - Post Discharge Activity
== END 2020-02-15 17:21 | disposition home or self-care (01) ==
LOC: JER 15:49
PROC: 3E0337Z Introduction of Electrolytic and Water Balance Substance into Peripheral Vein, Percutaneous Approach (ICD-10-PCS; principal; 2020-02-15)
DX: N93.9 Abnormal uterine and vaginal bleeding, unspecified (principal)
CPT/HCPCS: 99284-25

== ENCOUNTER 2020-02-21 16:28 | Emergency (ER) | payer OTHER ==
--- NOTE | 2020-02-21 16:31 | PDOC ---
Rapid Medical Evaluation Time Seen by Provider: 02/21/20 16:30 Medical Evaluation: Allergies Allergy/AdvReac Type Severity Reaction Status Date / Time No Known Allergies Allergy Verified 02/15/20 15:58 02/21/20 16:30 I have performed a brief in-person evaluation of this patient. The patient presents with a chief complaint of: Sent in by PMD for tx for syphilis, had + RPR on 02/16 (has report on her person). Pt reports no sxs or known vaginal/oral lesions now or in the past. No known h/o syphilis prior to this. H/o cocaine and PCP abuse, s/p tubal ligation Pertinent physical exam findings:stable, well shaun I have ordered the followin.4 million units of pen G, no known drug allergies The patient will proceed to the ED for further evaluation. 02/21/20 16:34 Discharge Disposition - Diagnosis Positive serology for syphilis - Referrals Referrals: Navjot Bates MD [Primary Care Provider] - - Patient Instructions - Post Discharge Activity
[2020-02-21] MEDS ORDERED: PENICILLIN G BENZATHINE 2,400,000 UNIT/4 ML PFS IM ONE (16:34)
[2020-02-21 16:35] VITALS: BP 121/66; PULSE 88; TEMP 98.4; BMI 21.0
--- OUTSIDE RECORDS SUMMARY | 2020-02-21 16:39 | XMS ---
:1985 Author Organization [facility] Care Team Providers Name Role Phone [...] is protected by Article 27-F of the [facility] Public Health law. If you continue you may haveaccess to information: Regarding HIV / AIDS; Provided by facilities licensed or operated by the [facility] Office of Mental Health; or Provided by the [facility] Office for People With Developmental Disabilities. If such information is present, then the following [facility] mandated warning applies: This information has [...] law may result in a fine or custodial sentence or both. A general authorization for the release of medical or other information is NOT sufficient authorization for further disclosure. Encounters Encounter Providers Location Date Indications Data Source(s ) Outpatient 08/01/2019 [facility] 07:00:00 PM ([facility] ty Services) Outpatient 06/03/2019 [facility] 07:50:00 PM ([facility] Services) Inpatient Attender: SEVERINO DUPONT3S 01/24/2019 [facility] MAJOZAdmitter: KEVIN 10:08:00 PM Pool rodrick JANIE EDT - 02/03/2019 10:23:00 PM EDT Patient discharged. Outpatient [facility] 01/24/2019 09:56:00 PM EDT - 019 [facility] 10:23:00 PM EDT Patient discharged. Outpatient [facility] 01/24/2019 09:54:00 PM EDT [facility] Admission cancelled. Disregard status an d admitted date. Medications Medication Brand Start Product Dose Route Administrative Pharmacy [facility] Indications Reaction Description Data Name Date Form Instructions Instructions Source(s) 24 HR Wellbu 1.0 Oral active [facility] Bupropion shadi 2019 Table (Softric[facility] t Hydrochlori XL 04:00: t er [facility] castillo de 150 MG 00 AM Community Extended EDT Services) Release Oral Tablet [Wellbutrin ] Mirtazapine Remero 1.0 Oral active [place] [facility] 15 MG Oral n 2019 Table ([facility] Tablet 04:00: t er Orthodox [Remeron] 00 AM Community EDT Services) Risperidone Risper .0 Oral active NE [facility] 2 MG Oral MIKHAIL 2019 Table (Softricity t Tablet 04:00: t er Orthodox [Risperdal] 00 AM [facility] ty EDT Services) Mirtazapine Remero .0 Oral active NE [facility] 15 MG Oral n 2019 Table ([facility] Tablet 04:00: t er Orthodox [Remeron] 00 AM Community EDT Services) 24 HR Wellbu 1.0 Oral active [facility] Bupropion shadi 2020 Table ([place] t Hydrochlori XL 04:00: t er [facility] castillo de 150 MG 00 AM Community Extended EDT Services) Release Oral Tablet [Wellbutrin ] Risperidone Risper 1.0 Oral active NE [facility] 2 MG Oral MIKHAIL 2019 Table ([place] [facility] Tablet 04:00: t er Orthodox [Risperdal] 00 AM Communi ty EDT Services) 24 HR Intuni 1.0 Oral active [facility] Guanfacine v 2019 Table ([facility] 1 MG 04:00: t er Orthodox Extended 00 AM Community Release EDT Services) Oral Tablet [Intuniv] Risperidone Risper 1.0 Oral active NE [facility] 2 MG Oral MIKHAIL 2019 Table ([place] [facility] Tablet 04:00: t er Orthodox [Risperdal] 00 AM Communi ty EDT Services) Mirtazapine Remero 1.0 Oral active NE [facility] 15 MG Oral n 2019 Table ([facility] Tablet 04:00: t er Orthodox [Remeron] 00 AM Community EDT Services) Mirtazapine Remero 1.0 Oral active NE [facility] 15 MG Oral n 2019 Table ([facility] Tablet 04:00: t er Orthodox [Remeron] 00 AM Community EDT Services) Risperidone Risper 1.0 Oral active NE [facility] 2 MG Oral MIKHAIL 2019 Table ([place] [facility] Tablet 04:00: t er Orthodox [Risperdal] 00 AM Communi ty EDT Services) Risperidone Risper 09/27/ 1.0 Oral active NE [facility] 1 MG Oral MIKHAIL 2020 Table ([facility] [facility] Tablet 04:00: t er Orthodox [Risperdal] 00 AM Communi ty EDT Services) Risperidone Risper 1.0 Oral active NE [facility] 0.5 MG Oral MIKHAIL 2019 Table ([facility] est Tablet 04:00: t er Orthodox [Risperdal] 00 AM Communi ty EDT Services) Prazosin 1 [place] 02/02/ ORAL complet Sa int MG Oral in HCl 2019 ed [facility] - [facility] 12:00: [facility] ORAL 00 AM Capsul EDT e Insurance Providers Payer name Policy type Policy ID Covered Covered democrat's Policy P alisha / Coverage democrat ID relationship to Adhikari Inf ormation type adhikari MVP MEDICAID [id number] SP [id number] HMO MVP MEDICAID [id number] SP [id number] HMO MEDICAID [id number] SP [id number] MVP HEALTH [id number] SP [id number] CARE [place] [id number] SP [id number] HEALTH-MVP SELF PAY 00 Self 00 MEDICAID INP [id number] Self [id number] T PSYCH [facility] MVP [id number] Self [id number] [employer] [place] Problems, Conditions, and Diagnoses Code Display Name Description Problem Type Effective Data Dates Source(s) [id number] 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 [facility] stress disorder [facility] F32.2 Major depressive Major depressive Diagnosis 02/02/2019 Sa int disorder, single disorder, single 04:12:00 PM V incents episode, severe episode, severe EDT Hosp ital without psychotic without psychotic features features Results ID Date Data Source [id number] 01/11/2020 04:05:00 PM EDT [facility] Name Value Range Interpretation Description Data Sup porting Code Source(s) Document(s ) SARS [facility] coronavirus 2 RNA This lab was ordered by [facility] Ac ct Bill Inter and reported by [facility]. Procedure Vital Signs ID Date Data Source UNK Name Value Range Interpretation Code Description Data Source(s) Diastolic blood 64 mmHg 64 mmHg [facility] Systolic blood 97 mmHg 97 mmHg [facility] Heart rate 72 bpm 72 bpm [facility] Diastolic blood 56 mmHg 56 mmHg [facility] Systolic blood 88 mmHg 88 mmHg [facility] Respiratory rate 18 bpm 18 bpm [facility] Heart rate 62 bpm 62 bpm [facility] Body temperature 97.7 Fahrenheit 97.7 Fahrenhei t [facility] Diastolic blood 66 mmHg 66 mmHg [facility] Systolic blood 102 mmHg 102 mmHg [facility] Respiratory rate 18 bpm 18 bpm [facility] Heart rate 84 bpm 84 bpm [facility] Body temperature 98.7 Fahrenheit 98.7 Fahrenhei t [facility] Diastolic blood 62 mmHg 62 mmHg [facility] Systolic blood 99 mmHg 99 mmHg [facility] Respiratory rate 18 bpm 18 bpm [facility] Heart rate 76 bpm 76 bpm [facility] Body temperature 98.5 Fahrenheit 98.5 Fahrenhei t [facility] Diastolic blood 67 mmHg 67 mmHg [facility] Systolic blood 101 mmHg 101 mmHg [facility] Respiratory rate 18 bpm 18 bpm [facility] Heart rate 67 bpm 67 bpm [facility] Body temperature 98.1 Fahrenheit 98.1 Fahrenhei t [facility] Body temperature 97.2 Fahrenheit 97.2 Fahrenhei t [facility] Diastolic blood 61 mmHg 61 mmHg [facility] Systolic blood 91 mmHg 91 mmHg [facility] Respiratory rate 18 bpm 18 bpm [facility] Heart rate 69 bpm 69 bpm [facility] Respiratory rate 18 bpm 18 bpm [facility] Diastolic blood 67 mmHg 67 mmHg [facility] Systolic blood 107 mmHg 107 mmHg [facility] Heart rate 79 bpm 79 bpm [facility] Diastolic blood 55 mmHg 55 mmHg [facility] Systolic blood 89 mmHg 89 mmHg [facility] Respiratory rate 18 bpm 18 bpm [facility] Heart rate 68 bpm 68 bpm [facility] Body weight 144 lbs 144 lbs [facility] Diastolic blood 62 mmHg 62 mmHg [facility] Systolic blood 91 mmHg 91 mmHg [facility] Respiratory rate 16 bpm 16 bpm [facility] Heart rate 67 bpm 67 bpm [facility] Body temperature 97.7 Fahrenheit 97.7 Fahrenhei t [facility] Respiratory rate 18 bpm 18 bpm [facility] Body temperature 98.5 Fahrenheit 98.5 Fahrenhei t [facility] Diastolic blood 73 mmHg 73 mmHg [facility] Systolic blood 111 mmHg 111 mmHg [facility] Heart rate 81 bpm 81 bpm [facility] Diastolic blood 68 mmHg 68 mmHg [facility] Systolic blood 104 mmHg 104 mmHg [facility] Heart rate 79 bpm 79 bpm [facility] Diastolic blood 64 mmHg 64 mmHg [facility] Systolic blood 97 mmHg 97 mmHg [facility] Respiratory rate 18 bpm 18 bpm [facility] Heart rate 77 bpm 77 bpm [facility] Body temperature 97.9 Fahrenheit 97.9 Fahrenh t [facility] Diastolic blood 67 mmHg 67 mmHg [facility] Systolic blood 104 mmHg 104 mmHg [facility] Heart rate 82 bpm 82 bpm [facility] Diastolic blood 69 mmHg 69 mmHg [facility] Systolic blood 103 mmHg 103 mmHg [facility] Respiratory rate 18 bpm 18 bpm [facility] Heart rate 72 bpm 72 bpm [facility] Diastolic blood 69 mmHg 69 mmHg [facility] Systolic blood 106 mmHg 106 mmHg [facility] Respiratory rate 20 bpm 20 bpm [facility] Heart rate 74 bpm 74 bpm [facility] Diastolic blood 67 mmHg 67 mmHg [facility] Systolic blood 101 mmHg 101 mmHg [facility] Respiratory rate 18 bpm 18 bpm [facility] Heart rate 79 bpm 79 bpm [facility] Body temperature 98.1 [facility]
--- NOTE | 2020-02-21 17:04 | PDOC ---
History of Present Illness - General Chief Complaint: Vaginal Sxs Stated Complaint: Vaginal Sxs Time Seen by Provider: 02/21/20 16:30 History Source: Patient Exam Limitations: No Limitations - History of Present Illness Initial Comments: 02/21/20 17:00 This a 34-year-old female with polysubstance abuse presenting to the ED from Dr. Zaragoza's office for positive syphilis test. Dr. Zaragoza wrote a prescription for 2,400,000 units of pen G. Patient currently denies any symptoms, is a poor historian however rest of ROS negative. Past History - Medical History Allergies/Adverse Reactions: Allergies Allergy/AdvReac Type Severity Reaction Status Date / Time No Known Allergies Allergy Verified 02/21/20 16:30 Home Medications: Ambulatory Orders Cephalexin Monohydrate [Keflex -] 500 mg PO BID 7 Days #14 capsule 02/16/20 Asthma: Yes COPD: No Diabetes: No Disorders: Yes (kidney stones) Kidney Stones: Yes - Reproductive History Is Patient Now?: No (#): 2 Para: 2 Tubal Ligation: No Spontaneous : 0 - Psycho-Social/Smoking History Smoking Status: Yes Smoking History: Current every day smoker Have you smoked in the past 12 months: Yes Number of Cigarettes Smoked Daily: 5 Information on smoking cessation initiated: Yes - Substance Abuse Hx (Audit-C & DAST Scrn) How often the patient has a drink containing alcohol: Never Score: In Men: 4 or > Positive; In Women: 3 or > Positive: 0 Screen Result (Pos requires Nsg. Audit-10AR): Negative In the last yr the pt used illegal drug/Rx for NonMed reason: No Score: Yes response is considered Positive: 0 Screen Result (Positive result requires Nsg. DAST-10): Negative *Physical Exam - Vital Signs Last Vital Signs Temp Pulse Resp BP Pulse Ox 98.4 F 88 16 121/66 100 02/21/20 16:31 02/21/20 16:31 02/21/20 16:31 02/21/20 16:31 02/21/20 16:31 - Physical Exam 02/21/20 17:01 Gen: AAOx 3, no acute distress, comfortable, no signs of respiratory distress NECK: supple; trachea midline; no JVD, no lymphadenopathy, or thyromegaly CV: RRR no murmurs, gallops, or rubs. CHEST: CTA b/l no wheezing, rales or rhonchi ABD: +BS/ND. no TTP; soft, no rebound, no guarding EXTREMITY: no cyanosis or erythema. 2+ dorsalis pedis, posterior tibial, and radial pulse. No pedal edema; no calf swelling or tenderness NEURO: normal speech, CN II-XII intact, sensation intact, normal gait, no cerebellar deficits MS: 5/5 strength in all extremities, FROM intact in all extremities. Medical Decision Making - Medical Decision Making 02/21/20 17:01 34-year-old female with positive RPR sent by PCP for pen G shot Vital signs stable We will administer penicillin Patient educated on needing repeat dose x2 to ensure eradication and retesting for syphilis upon completion of 2 more doses of penicillin spaced out 1 week each. Patient to return on 02/27 and 03/06 Pt appears well and is safe and stable for discharge with strict return precautions including signs and symptoms requring immediate return to the ED Supportive care instructions explained and given to pt. Reasons to return emergently to ER explained and given. Importance of follow up with PMD and other specialists as indicated stressed to pt. Pt verbalized understanding of instructions. Pt to follow up with PMD in 2 days. Discharge - Discharge Information Problems reviewed: Yes Clinical Impression/Diagnosis: Positive serology for syphilis Condition: Stable Disposition: HOME - Follow up/Referral Referrals: Navjot Bates MD [Primary Care Provider] - - Patient Discharge Instructions Patient Printed Discharge Instructions: DI for Syphilis Additional Instructions: YOU MUST RETURN IN 1 WEEK FOR ANOTHER DOSE OF PENICILLIN AND THEN THE FOLLOWING WEEK WELL PLEASE NOTIFY RECENT SEXUAL PARTNERS RETURN ON 02/27 AND 03/06 - Post Discharge Activity
[2020-02-21] MEDS ORDERED: PENICILLIN G BENZATHINE 2,400,000 UNIT/4 ML PFS ONE (17:29)
== END 2020-02-21 17:49 | disposition home or self-care (01) ==
LOC: JER 16:28
DX: A53.0 Latent syphilis, unspecified as early or late (principal)
CPT/HCPCS: 99284-25

== ENCOUNTER 2020-02-22 15:31 | Inpatient (IN) | payer OTHER ==
--- OUTSIDE RECORDS SUMMARY | 2020-02-22 15:41 | XMS ---
[...] is protected by Article 27-F of the [facility] Public Health law. If you continue you may haveaccess to information: Regarding HIV / AIDS; Provided by facilities licensed or operated by the [facility] Office of Mental Health; or Provided by the [facility] Office for People With Developmental Disabilities. If such information is present, then the following [facility] mandated warning applies: This information has [...] Source(s ) Outpatient 08/01/2019 NETSMART 07:00:00 PM ([facility] ty Services) Outpatient 06/03/2019 NETSMART 07:50:00 PM ([facility] Services) Inpatient Attender: SEVERINO DUPONT3S 01/24/2019 [facility] MAJOZAdmitter: KEVIN 10:08:00 PM Pool rodrick JANIE EDT - 02/03/2019 10:23:00 PM EDT Patient discharged. Outpatient [facility] 01/24/2019 09:56:00 PM EDT - 019 [facility] 10:23:00 PM EDT Patient discharged. Outpatient [facility] 01/24/2019 09:54:00 PM EDT [facility] Admission cancelled. Disregard status an d admitted date. Medications Medication Brand Start Product Dose Route [facility] Indications Reaction Description Data Name Date Form Instructions Instructions Source(s) 24 HR Wellbu 1.0 Oral active NETSMART Bupropion shadi 2019 Table (Colizer t Hydrochlori XL 04:00: t er Rastafarian castillo de 150 MG 00 AM Community Extended EDT Services) Release Oral Tablet [Wellbutrin ] Mirtazapine Remero 1.0 Oral active NE TSMART 15 MG Oral n 2019 Table (Holla@Me st Tablet 04:00: t er Holiness [Remeron] 00 AM Community EDT Services) Risperidone Risper .0 Oral active NE TSMART 2 MG Oral MIKHAIL 2019 Table (Colizer t Tablet 04:00: t er Holiness [Risperdal] [facility]) Mirtazapine Remero .0 Oral active NE TSMART 15 MG Oral n 2019 Table (Holla@Me st Tablet 04:00: t er Holiness [Remeron] 00 AM Community EDT Services) 24 HR Wellbu 1.0 Oral active NETSMART Bupropion shadi 2020 Table ([facility] t Hydrochlori XL 04:00: t er Rastafarian castillo de 150 MG 00 AM Community Extended EDT Services) Release Oral Tablet [Wellbutrin ] Risperidone Risper 1.0 Oral active NE TSMART 2 MG Oral MIKHAIL 2019 Table ([facility] t Tablet 04:00: t er Holiness [Risperdal] 00 AM Communi ty EDT Services) 24 HR Intuni 1.0 Oral active NETSMART Guanfacine v 2019 Table ([facility] 1 MG 04:00: t er Holiness Extended 00 AM Community Release EDT Services) Oral Tablet [Intuniv] Risperidone Risper 1.0 Oral active NE TSMART 2 MG Oral MIKHAIL 2019 Table ([facility] t Tablet 04:00: t er Holiness [Risperdal] 00 AM Communi ty EDT Services) Mirtazapine Remero 1.0 Oral active NE TSMART 15 MG Oral n 2019 Table ([facility] Tablet 04:00: t er Holiness [Remeron] 00 AM Community EDT Services) Mirtazapine Remero 1.0 Oral active NE TSMART 15 MG Oral n 2019 Table ([facility] Tablet 04:00: t er Holiness [Remeron] 00 AM Community EDT Services) Risperidone Risper 1.0 Oral active NE TSMART 2 MG Oral MIKHAIL 2019 Table ([facility] t Tablet 04:00: t er Holiness [Risperdal] 00 AM Communi ty EDT Services) Risperidone Risper 09/27/ 1.0 Oral active NE TSMART 1 MG Oral MIKHAIL 2020 Table ([facility] t Tablet 04:00: t er Holiness [Risperdal] 00 AM Communi ty EDT Services) Risperidone Risper 1.0 Oral active NE TSMART 0.5 MG Oral MIKHAIL 2019 Table ([facility] est Tablet 04:00: t er Holiness [Risperdal] 00 AM Communi ty EDT Services) Prazosin 1 [place] 02/02/ ORAL complet Sa int MG Oral in HCl 2019 [facility] 12:[facility]: [facility] ORAL 00 AM Capsul EDT e Insurance Providers Payer name Policy type Policy ID Covered Covered libertarian's Policy P alisha / Coverage libertarian ID relationship to Adhikari Inf ormation type adhikari MVP MEDICAID [id number] SP [id number] HMO MVP MEDICAID [id number] SP [id number] HMO MEDICAID [id number] SP [id number] MVP HEALTH [id number] SP [id number] CARE [place] [id number] SP [id number] HEALTH-MVP SELF PAY 00 Self 00 MEDICAID INP [id number] Self [id number] T PSYCH [facility] MVP [id number] Self [id number] HEALTHPLAN [place] Problems, Conditions, and Diagnoses Code Display Name Description Problem Type Effective Data Dates Source(s) [id number] 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 [facility] stress disorder [facility] F32.2 Major depressive Major depressive Diagnosis 02/02/2019 Sa int disorder, single disorder, single 04:12:00 PM V incents episode, severe episode, severe EDT Hosp ital without psychotic without psychotic features features Results ID Date Data Source [id number] 01/11/2020 04:05:00 PM EDT [facility] Name Value Range Interpretation Description Data Sup porting Code Source(s) Document(s ) SARS [facility] coronavirus 2 RNA This lab was ordered by [facility] Pav Ac ct Bill Inter and reported by [facility]. Procedure Vital Signs ID Date Data Source UNK Name Value Range Interpretation Code Description Data Source(s) Diastolic blood 64 mmHg 64 mmHg [facility] Systolic blood 97 mmHg 97 mmHg [facility] Heart rate 72 bpm 72 bpm [facility] Diastolic blood 56 mmHg 56 mmHg [facility] Systolic blood 88 mmHg 88 mmHg [facility] Respiratory rate 18 bpm 18 bpm [facility] Heart rate 62 bpm 62 bpm [facility] Body temperature 97.7 Fahrenheit 97.7 Fahrenhei t [facility] Diastolic blood 66 mmHg 66 mmHg [facility] Systolic blood 102 mmHg 102 mmHg [facility] Respiratory rate 18 bpm 18 bpm [facility] Heart rate 84 bpm 84 bpm [facility] Body temperature 98.7 Fahrenheit 98.7 Fahrenhei t [facility] Diastolic blood 62 mmHg 62 mmHg [facility] Systolic blood 99 mmHg 99 mmHg [facility] Respiratory rate 18 bpm 18 bpm [facility] Heart rate 76 bpm 76 bpm [facility] Body temperature 98.5 Fahrenheit 98.5 Fahrenhei t [facility] Diastolic blood 67 mmHg 67 mmHg [facility] Systolic blood 101 mmHg 101 mmHg [facility] Respiratory rate 18 bpm 18 bpm [facility] Heart rate 67 bpm 67 bpm [facility] Body temperature 98.1 Fahrenheit 98.1 Fahrenhei t [facility] Body temperature 97.2 Fahrenheit 97.2 Fahrenhei t [facility] Diastolic blood 61 mmHg 61 mmHg [facility] Systolic blood 91 mmHg 91 mmHg [facility] Respiratory rate 18 bpm 18 bpm [facility] Heart rate 69 bpm 69 bpm [facility] Respiratory rate 18 bpm 18 bpm [facility] Diastolic blood 67 mmHg 67 mmHg [facility] Systolic blood 107 mmHg 107 mmHg [facility] Heart rate 79 bpm 79 bpm [facility] Diastolic blood 55 mmHg 55 mmHg [facility] Systolic blood 89 mmHg 89 mmHg [facility] Respiratory rate 18 bpm 18 bpm [facility] Heart rate 68 bpm 68 bpm [facility] Body weight 144 lbs 144 lbs [facility] Diastolic blood 62 mmHg 62 mmHg [facility] Systolic blood 91 mmHg 91 mmHg [facility] Respiratory rate 16 bpm 16 bpm [facility] Heart rate 67 bpm 67 bpm [facility] Body temperature 97.7 Fahrenheit 97.7 Fahrenhei t [facility] Respiratory rate 18 bpm 18 bpm [facility] Body temperature 98.5 Fahrenheit 98.5 Fahrenhei t [facility] Diastolic blood 73 mmHg 73 mmHg [facility] Systolic blood 111 mmHg 111 mmHg [facility] Heart rate 81 bpm 81 bpm [facility] Diastolic blood 68 mmHg 68 mmHg [facility] Systolic blood 104 mmHg 104 mmHg [facility] Heart rate 79 bpm 79 bpm [facility] Diastolic blood 64 mmHg 64 mmHg [facility] Systolic blood 97 mmHg 97 mmHg [facility] Respiratory rate 18 bpm 18 bpm [facility] Heart rate 77 bpm 77 bpm [facility] Body temperature 97.9 Fahrenheit 97.9 Fahrenh t [facility] Diastolic blood 67 mmHg 67 mmHg [facility] Systolic blood 104 mmHg 104 mmHg [facility] Heart rate 82 bpm 82 bpm [facility] Diastolic blood 69 mmHg 69 mmHg [facility] Systolic blood 103 mmHg 103 mmHg [facility] Respiratory rate 18 bpm 18 bpm [facility] Heart rate 72 bpm 72 bpm [facility] Diastolic blood 69 mmHg 69 mmHg [facility] Systolic blood 106 mmHg 106 mmHg [facility] Respiratory rate 20 bpm 20 bpm [facility] Heart rate 74 bpm 74 bpm [facility] Diastolic blood 67 mmHg 67 mmHg [facility] Systolic blood 101 mmHg 101 mmHg [facility] Respiratory rate 18 bpm 18 bpm [facility] Heart rate 79 bpm 79 bpm [facility] Body temperature 98[address]
[2020-02-22 16:48] VITALS: BMI 22.6
--- NOTE | 2020-02-22 17:09 | BHS.RME ---
2019 N Coronavirus Screen - COVID-19 Screening Questions Dx of COVID-19 or had a positive test in the last 4 weeks?: No Contact with known/suspected COVID patient in last 14 days?: No Any of these symptoms or contact with someone who has?: None Traveled domestically/internationally in the last 14 days?: No Screen score: 0 Screen result: Further Evaluation Substance Use & Tx History - Substance Use History Alcohol Substance amount: Pt. unable to quantify Frequency of use: Daily Substance route: Oral Date of Last Use: 02/21/20 Cocaine- Powder Substance amount: 3 grams Frequency of use: Daily Substance route: Inhalation (ex: sniffing or snorting) Date of Last Use: 02/20/20 Marijuana/Hashish Substance amount: 05/11 Frequency of use: Daily Substance route: Smoking Date of Last Use: 02/21/20 PCP Substance amount: 3 blunts Frequency of use: Daily Substance route: Smoking Date of Last Use: 02/20/20 Physical/Psych/Mental Status - Behavior General Behavior: Increased activity (restlessness, agitation) Eye Contact: Normal - Cooperativeness Cooperativeness: Cooperative - Thinking Thought Processes: Goal Directed Thought content: Future oriented CIWA Nausea/Vomitin-No Nausea/No Vomiting Muscle Tremors: 2 Anxiety: 1-Mildly Anxious Agitation: 4-Moderately Restless Paroxysmal Sweats: 1-Minimal Palms Moist Orientation: 2-Disoriented Date<2 days Tacttile Disturbances: 0-None Auditory Disturbances: 0-None Visual Disturbances: 0-None Headache: 4-Moderately Severe CIWA-Ar Total Score: 14
--- NOTE | 2020-02-22 17:53 | HP ---
CIWA Score Nausea/Vomitin-No Nausea/No Vomiting Muscle Tremors: 2 Anxiety: 1-Mildly Anxious Agitation: 4-Moderately Restless Paroxysmal Sweats: 1-Minimal Palms Moist Orientation: 2-Disoriented Date<2 days Tacttile Disturbances: 0-None Auditory Disturbances: 0-None Visual Disturbances: 0-None Headache: 4-Moderately Severe CIWA-Ar Total Score: 14 - Admission Criteria OASAS Guidelines: Admission for Medically Managed Detox: Requires at least one of the followin. CIWA greater than 12 2. Seizures within the past 24 hours 3. Delirium tremens within the past 24 hours 4. Hallucinations within the past 24 hours 5. Acute intervention needed for co occurring medical disorder 6. Acute intervention needed for co occurring psychiatric disorder 7. Severe withdrawal that cannot be handled at a lower level of care (continued vomiting, continued diarrhea, abnormal vital signs) requiring intravenous medication and/or fluids 8. Admitting History and Physical - Admission Chief Complaint: "to get good, tired of drugs and alcohol" History of Present Illness: Pt. presents from home for detox and rehab. Pt. states that she came to this decision today. Pt. endorses that she is on probation. Pt. was last in rehab last year March, was sober for 14 days and then relapsed with alcohol. Pt. states she was recently started on an antibiotic for UTI (Kefflex 500mg BID x 7 days started on 02/16). Pt. takes Risperidone 2mg HS and Remeron 15mg HS. PMHx: Hx. Syphillis (treated but has been reinfected and received a shot 02/21/20--> due for next penicillin shot on ), Nephrolithiasis PSH: Tubal ligation, Lithoptripsy Psych: PTSD, ADD, Schizophrenia, Bipolar and Anxiety Social: Living with Boyfriend Legal: Probation - Substance Use History Alcohol Substance amount: 375ml/ day Frequency of use: Daily Substance route: Oral Date of Last Use: 02/21/20 Hx. of blackouts, last yesterday Cocaine- Powder Substance amount: 3 grams Frequency of use: Daily Substance route: Inhalation (ex: sniffing or snorting) Date of Last Use: 02/20/20 Last used 3 days ago Marijuana/Hashish Substance amount: 05/11 Frequency of use: Daily Substance route: Smoking Date of Last Use: 02/21/20 Last used yesterday PCP Substance amount: 3 blunts Frequency of use: Daily Substance route: Smoking Date of Last Use: 02/20/20 Last used 3 days ago History Source: Patient Limitations to Obtaining History: No Limitations - Past Medical History Renal/: Yes: Renal Calculi ...LMP: 02/07/20 Psych: Yes: Anxiety, Bipolar, Depression, Other (PTSD) - Past Surgical History Past Surgical History: Yes: Tubal Ligation - Smoking History Smoking history: Current every day smoker Have you smoked in the past 12 months: Yes Aproximately how many cigarettes per day: 5 - Alcohol/Substance Use Hx Alcohol Use: Yes (socially) History of Substance Use: reports: None - Social History ADL: Independent (children 14 and 16 live with her mother in [place]) History of Recent Travel: No Admission [facility] Allergies/Adverse Reactions: Allergies Allergy/AdvReac Type Severity Reaction Status Date / Time No Known Allergies Allergy Verified 02/21/20 16:30 Exam Limitations: No Limitations - Ebola screening Have you traveled outside of the country in the last 21 days: No Have you had contact with anyone from an Ebola affected area: No Have you been sick,other than usual withdrawal symptoms: No Do you have a fever: No - Review of Systems Constitutional: Weight Stable EENT: denies: Blurred Vision, Recent change in vision, Difficulty Swallowing, Throat Pain Respiratory: denies: Cough Cardiac: reports: No Symptoms Reported. denies: Chest Pain, Lightheadedness, Palpitations GI: reports: No Symptoms Reported. denies: Constipated, Diarrhea, Difficulty Swallowing, Nausea, Rectal Bleeding, Vomiting, Indigestion : denies: Dysuria, Discharge Musculoskeletal: reports: Joint Pain (chronic, when cold). denies: Muscle Pain Integumentary: reports: No Symptoms Reported Neuro: reports: Headache (temporal/parietal bilaterally). denies: Numbness, Seizure, Tingling, Weakness Endocrine: reports: No Symptoms Reported. denies: Unexplained Weight Loss Psychiatric: reports: Anxious Patient History - Patient Medical History Hx Asthma: Yes Hx Chronic Obstructive Pulmonary Disease (COPD): No Hx Diabetes: No Hx Genitourinary Disorders: Yes (kidney stones) Hx Suicide Attempt: No - Patient Surgical History Past Surgical History: Yes - PPD History Previous Implant?: No PPD to be Administered?: Yes - Reproductive History Last Menstrual Period: 02/07/20 - Smoking Cessation Smoking history: Current every day smoker Have you smoked in the past 12 months: Yes Aproximately how many cigarettes per day: 5 Hx Chewing Tobacco Use: No Initiated information on smoking cessation: Yes 'Breaking Loose' booklet given: 02/22/20 - Substance & Tx. History Hx Alcohol Use: Yes (375 ml/ day ) Hx Substance Use: Yes Substance Use Type: Alcohol, Cocaine, Marijuana - Substances abused Alcohol Substance route: Oral Frequency: Daily Amount used: 375ml of liquor Age of first use: 14 Date of last use: 02/21/20 PCP Substance route: Smoking Frequency: Daily Amount used: 3 blunts Age of first use: 14 Date of last use: 02/20/20 Marijuana/Hashish Substance route: Smoking Frequency: Daily Amount used: / Age of first use: 15 Date of last use: 02/21/20 Cocaine Substance route: Inhalation Frequency: Daily Amount used: 3 grams Age of first use: 20 Date of last use: 02/20/20 Admission Physical Exam S - Vital Signs Vital Signs: Vital Signs - 24 hr 02/22/20 16:46 Temperature 98.1 F Pulse Rate 95 H Respiratory 18 Rate Blood Pressure 120/77 - Physical General Appearance: Yes: Within Normal Limits, No Apparent Distress, Tremorous, Sweating, Anxious HEENTM: Yes: Hearing grossly Normal, Normal ENT Inspection, Normal Voice, Pharynx Normal. No: Thrush, Lessions Respiratory: Yes: Chest Non-Tender, Lungs Clear, Normal Breath Sounds, No Respiratory Distress, No Accessory Muscle Use Neck: Yes: Within Normal Limits, Trachea in good position Breast: Yes: Breast Exam Deferred Cardiology: Yes: Within Normal Limits, Regular Rhythm, Regular Rate, S1, S2 Abdominal: Yes: Normal Bowel Sounds, Non Tender, Flat, Soft Genitourinary: No: Burning, Itiching Back: Yes: Within Normal Limits, Normal Inspection. No: CVA Tenderness Musculoskeletal: Yes: full range of Motion Extremities: Yes: Within Normal Limits, Normal Range of Motion, Non-Tender, Tremors. No: Coldness, Cyanosis, Calf Tenderness Neurological: Yes: consultant in ergonomics and safety II-XII NML intact, Fully Oriented, Motor Strength 5/5. No: Numbness, Disoriented Integumentary: Yes: Normal Color, Dry, Warm Cleared for Admission S - Detox or Rehab [facility] Level of Care: Medically Managed Claeared for Rehab Admission: Yes (Poor home environment for recovery) Breathalyzer - Breathalyzer Breathalyzer: 0 Urine Drug Screen - Test Device Lot number: [id number] Expiration date: 08/09/21 - Control Is test valid?: Yes - Results Urine drug screen results: THC-Marijuana, KENYA-Cocaine Inpatient Rehab Admission - Rehab Decision to Admit Inpatient rehab admission?: Yes - Initial Determination Are CD services needed?: No Free of communicable disease: Yes Not in need of hospitalization: No - Rehab Admission Criteria Previous failed treatment: Yes Poor recovery environment: Yes Comorbidities: No Lacks judgement: No Patient is meeting Inpatient Rehab admission criteria:: Yes (Poor enviroment at home for recovery after detox)
[2020-02-22] MEDS ORDERED: ACETAMINOPHEN 325 MG TABLET (FP) PO PRN ×2 (18:10)
[2020-02-22] MEDS ORDERED: MAGNESIUM HYDROX 2400MG/30ML ORAL SUSPENSION 30 ML CUP PO PRN (18:10)
[2020-02-22] MEDS ORDERED: BISMUTH SUBSALICYLATE 524 MG/30 ML UD PO PRN (18:10)
[2020-02-22] MEDS ORDERED: MAGNESIUM CITRATE 300 ML BOTTLE PO PRN (18:10)
[2020-02-22] MEDS ORDERED: ONDANSETRON *ODT* 4 MG TABLET SL PRN (18:10)
[2020-02-22] MEDS ORDERED: NICOTINE POLACRILEX 2 MG GUM BUC PRN (18:10)
[2020-02-22] MEDS ORDERED: chlordiazePOXIDE HCL 25 MG CAPSULE PO PRN (18:10)
[2020-02-22] MEDS ORDERED: MENTHOL/PHENOL 1 EACH UD MM PRN (18:10)
[2020-02-22] MEDS ORDERED: MAG HYDROX/AL HYDROX/SIMETH 30 ML UNIT-DOSE CUP PO PRN (18:10)
[2020-02-22] MEDS ORDERED: METHOCARBAMOL 500 MG TABLET PO PRN (18:10)
[2020-02-22] MEDS ORDERED: IBUPROFEN 400 MG TABLET (FP) PO PRN (18:10)
--- OUTSIDE RECORDS SUMMARY | 2020-02-22 18:10 | XMS ---
[...] is protected by Article 27-F of the [facility] Public Health law. If you continue you may haveaccess to information: Regarding HIV / AIDS; Provided by facilities licensed or operated by the [facility] Office of Mental Health; or Provided by the [facility] Office for People With Developmental Disabilities. If such information is present, then the following [facility] mandated warning applies: This information has [...] law may result in a fine or shelter sentence or both. A general authorization for the release of medical or other information is NOT sufficient authorization for further disclosure. Encounters Encounter Providers Location Date Indications Data Source(s ) Outpatient 08/01/2019 [facility] 07:00:00 PM ([facility] ty Services) Outpatient 06/03/2019 NETSMART 07:50:00 PM ([facility] Services) Inpatient Attender: SEVERINO DUPONT3S 01/24/2019 [facility] MAJOZAdmitter: KEVIN 10:08:00 PM Pool rodrick JANIE EDT - 02/03/2019 10:23:00 PM EDT Patient discharged. Outpatient [facility] 01/24/2019 09:56:00 PM EDT - 019 [facility] 10:23:00 PM EDT Patient discharged. Outpatient [facility] 01/24/2019 09:54:00 PM EDT [facility] Admission cancelled. Disregard status an d admitted date. Medications Medication Brand Start Product Dose Route Administrative Pharmacy [facility] Indications Reaction Description Data Name Date Form Instructions Instructions Source(s) 24 HR Wellbu 1.0 Oral active NETSMART Bupropion shadi 2019 Table ([employer] t Hydrochlori XL 04:00: t er Religion castillo de 150 MG 00 AM Community Extended EDT Services) Release Oral Tablet [Wellbutrin ] Mirtazapine Remero 1.0 Oral active NE TSMART 15 MG Oral n 2019 Table ([facility] Tablet 04:00: t er Christianity [Remeron] 00 AM Community EDT Services) Risperidone Risper .0 Oral active NE TSMART 2 MG Oral MIKHAIL 2019 Table ([employer] t Tablet 04:00: t er Christianity [Risperdal] 00 AM [facility] ty EDT Services) Mirtazapine Remero .0 Oral active NE TSMART 15 MG Oral n 2019 Table ([facility] Tablet 04:00: t er Christianity [Remeron] 00 AM Community EDT Services) 24 HR Wellbu 1.0 Oral active [facility]SM[facility] Bupropion shadi 2020 Table ([facility] t Hydrochlori XL 04:00: t er Religion castillo de 150 MG 00 AM Community Extended EDT Services) Release Oral Tablet [Wellbutrin ] Risperidone Risper 1.0 Oral active NE TSMART 2 MG Oral MIKHAIL 2019 Table ([facility] t Tablet 04:00: t er Christianity [Risperdal] 00 AM Communi ty EDT Services) 24 HR Intuni 1.0 Oral active [facility] Guanfacine v 2019 Table ([facility] 1 MG 04:00: t er Christianity Extended 00 AM Community Release EDT Services) Oral Tablet [Intuniv] Risperidone Risper 1.0 Oral active NE TSMART 2 MG Oral MIKHAIL 2019 Table ([facility] Tablet 04:00: t er Christianity [Risperdal] 00 AM Communi ty EDT Services) Mirtazapine Remero 1.0 Oral active NE TSMART 15 MG Oral n 2019 Table ([facility] Tablet 04:00: t er Christianity [Remeron] 00 AM Community EDT Services) Mirtazapine Remero 1.0 Oral active NE TSMART 15 MG Oral n 2019 Table ([facility] Tablet 04:00: t er Christianity [Remeron] 00 AM Community EDT Services) Risperidone Risper 1.0 Oral active NE TSMART 2 MG Oral MIKHAIL 2019 Table ([facility] Tablet 04:00: t er Christianity [Risperdal] 00 AM Communi ty EDT Services) Risperidone Risper 09/27/ 1.0 Oral active NE TSMART 1 MG Oral MIKHAIL 2020 Table ([facility] Tablet 04:00: t er Christianity [Risperdal] 00 AM Communi ty EDT Services) Risperidone Risper 1.0 Oral active NE TSMART 0.5 MG Oral MIKHAIL 2019 Table ([facility] est Tablet 04:00: t er Christianity [Risperdal] 00 AM Communi ty EDT Services) Prazosin 1 [place] 02/02/ ORAL complet Sa int MG Oral in HCl 2019 ed [facility] - [facility] 12:00: [facility] ORAL 00 AM Capsul EDT e Insurance Providers Payer name Policy type Policy ID Covered Covered democrat's Policy P alisha / Coverage democrat ID relationship to Adhikari Inf ormation type adhikari MVP MEDICAID [id number] SP [id number] HMO MVP MEDICAID [id number] SP [id number] HMO MEDICAID [id number] SP [id number] MVP HEALTH [id number] SP [id number] CARE [place] [id number] SP [id number] HEALTH-MVP SELF PAY 00 Self 00 MEDICAID INP [id number] Self [id number] T PSYCH [facility] MVP [id number] Self [id number] [employer]ALTHPLAN [place] Problems, Conditions, and Diagnoses Code Display Name Description Problem Type Effective Data Dates Source(s) [id number] 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 NETSMART stress disorder [facility] F32.2 Major depressive Major depressive Diagnosis 02/02/2019 Sa int disorder, single disorder, single 04:12:00 PM V incents episode, severe episode, severe EDT Hosp ital without psychotic without psychotic features features Results ID Date Data Source [id number] 01/11/2020 04:05:00 PM EDT [facility] Name Value Range Interpretation Description Data Sup porting Code Source(s) Document(s ) SARS [facility] coronavirus 2 RNA This lab was ordered by [facility] Ac ct Bill Inter and reported by [facility]. Procedure Vital Signs ID Date Data Source UNK Name Value Range Interpretation Code Description Data Source(s) Diastolic blood 64 mmHg 64 mmHg [facility] [place] Systolic blood 97 mmHg 97 mmHg [facility] Heart rate 72 bpm 72 bpm [facility] Diastolic blood 56 mmHg 56 mmHg [facility] [place] Systolic blood 88 mmHg 88 mmHg [facility] [place] Respiratory rate 18 bpm 18 bpm [facility] Heart rate 62 bpm 62 bpm [facility] Body temperature 97.7 Fahrenheit 97.7 Fahrenhei t [facility] Diastolic blood 66 mmHg 66 mmHg [facility] [place] Systolic blood 102 mmHg 102 mmHg [facility] [place] Respiratory rate 18 bpm 18 bpm [facility] Heart rate 84 bpm 84 bpm [facility] Body temperature 98.7 Fahrenheit 98.7 Fahrenhei t [facility] Diastolic blood 62 mmHg 62 mmHg [facility] [place] Systolic blood 99 mmHg 99 mmHg [facility] [place] Respiratory rate 18 bpm 18 bpm [facility] Heart rate 76 bpm 76 bpm [facility] Body temperature 98.5 Fahrenheit 98.5 Fahrenhei t [facility] Diastolic blood 67 mmHg 67 mmHg [facility] [place] Systolic blood 101 mmHg 101 mmHg [facility] [place] Respiratory rate 18 bpm 18 bpm [facility] Heart rate 67 bpm 67 bpm [facility] Body temperature 98.1 Fahrenheit 98.1 Fahrenhei t [facility] Body temperature 97.2 Fahrenheit 97.2 Fahrenhei t [facility] Diastolic blood 61 mmHg 61 mmHg [facility] [place] Systolic blood 91 mmHg 91 mmHg [facility] [place] Respiratory rate 18 bpm 18 bpm [facility] Heart rate 69 bpm 69 bpm [facility] Respiratory rate 18 bpm 18 bpm [facility] Diastolic blood 67 mmHg 67 mmHg [facility] [place] Systolic blood 107 mmHg 107 mmHg [facility] [place] Heart rate 79 bpm 79 bpm [facility] Diastolic blood 55 mmHg 55 mmHg [facility] [place] Systolic blood 89 mmHg 89 mmHg [facility] [place] Respiratory rate 18 bpm 18 bpm [facility] Heart rate 68 bpm 68 bpm [facility] Body weight 144 lbs 144 lbs [facility] Diastolic blood 62 mmHg 62 mmHg [facility] [place] Systolic blood 91 mmHg 91 mmHg [facility] [place] Respiratory rate 16 bpm 16 bpm [facility] Heart rate 67 bpm 67 bpm [facility] Body temperature 97.7 Fahrenheit 97.7 Fahrenhei t [facility] Respiratory rate 18 bpm 18 bpm [facility] Body temperature 98.5 Fahrenheit 98.5 Fahrenhei t [facility] Diastolic blood 73 mmHg 73 mmHg [facility] [place] Systolic blood 111 mmHg 111 mmHg [facility] [place] Heart rate 81 bpm 81 bpm [facility] Diastolic blood 68 mmHg 68 mmHg [facility] [place] Systolic blood 104 mmHg 104 mmHg [facility] [place] Heart rate 79 bpm 79 bpm [facility] Diastolic blood 64 mmHg 64 mmHg [facility] [place] Systolic blood 97 mmHg 97 mmHg [facility] [place] Respiratory rate 18 bpm 18 bpm [facility] Heart rate 77 bpm 77 bpm [facility] Body temperature 97.9 Fahrenheit 97.9 Fahrenh t [facility] Diastolic blood 67 mmHg 67 mmHg [facility] [place] Systolic blood 104 mmHg 104 mmHg [facility] [place] Heart rate 82 bpm 82 bpm [facility] Diastolic blood 69 mmHg 69 mmHg [facility] [place] Systolic blood 103 mmHg 103 mmHg [facility] [place] Respiratory rate 18 bpm 18 bpm [facility] Heart rate 72 bpm 72 bpm [facility] Diastolic blood 69 mmHg 69 mmHg [facility] [place] Systolic blood 106 mmHg 106 mmHg [facility] [place] Respiratory rate 20 bpm 20 bpm [facility] Heart rate 74 bpm 74 bpm [facility] Diastolic blood 67 mmHg 67 mmHg [facility] [place] Systolic blood 101 mmHg 101 mmHg [facility] [place] Respiratory rate 18 bpm 18 bpm [facility] Heart rate 79 bpm 79 bpm [facility] Body temperature 98.1 Fahrenheit 98.1 [facility]
[2020-02-22] MEDS: chlordiazePOXIDE HCL 25 MG CAPSULE PO SCH ×3 (19:38→22:10)
[2020-02-22] MEDS ORDERED: MELATONIN 5 MG TABLETS PO SCH (22:00)
[2020-02-22] MEDS ORDERED: CEPHALEXIN MONOHYDRATE 500 MG CAPSULE (UD) PO SCH (22:00)
[2020-02-22] MEDS ORDERED: THIAMINE HCL 100 MG TABLET (FP) PO SCH (22:00)
[2020-02-22] MEDS: hydrOXYzine PAMOATE 25 MG CAPSULE (FP) PO SCH (22:11)
[2020-02-22] MEDS: CEPHALEXIN MONOHYDRATE 500 MG CAPSULE (UD) PO SCH (22:11)
[2020-02-23] MEDS: chlordiazePOXIDE HCL 25 MG CAPSULE PO SCH ×2 (06:56→10:59)
[2020-02-23] MEDS: hydrOXYzine PAMOATE 25 MG CAPSULE (FP) PO SCH ×2 (06:56→10:59)
[2020-02-23] MEDS ORDERED: PRENATAL VITAMINS W/ FOLIC ACID TABLET (FP) PO SCH (10:00)
[2020-02-23] MEDS ORDERED: NICOTINE 7 MG/24 HOURS TOPICAL PATCH TD SCH (10:00)
--- NOTE | 2020-02-23 10:02 | PN ---
Teaching Attending Note Name of Resident: Cayden Moscoso ATTENDING PHYSICIAN STATEMENT I saw and evaluated the patient. I reviewed the resident's note and discussed the case with the resident. I agree with the resident's findings and plan as documented. SUBJECTIVE: OBJECTIVE: ASSESSMENT AND PLAN: Agree with resident's findings and plan for detox.
--- NOTE | 2020-02-23 10:49 | CONSULT ---
[facility] Psychiatric Consult - Data Date of interview: 02/23/20 Admission source: [facility] Identifying data: Patient is a 34 year old female, mother of two, unemployed, and currently homeless. This is patient's first admission to detox at [facility]. Patient admitted to for alcohol dependence. . Substance Abuse History: Substance Use History. Alcohol. Substance amount: 375ml/ day. Frequency of use: Daily. Substance route: Oral. Date of Last Use: 02/21/20. Hx. of blackouts, last yesterday. Cocaine- Powder. Substance amount: 3 grams. Frequency of use: Daily. Substance route: Inhalation (ex: sniffing or snorting). Date of Last Use: 02/20/20. Last used 3 days ago. Marijuana/Hashish. Substance amount: 05/11. Frequency of use: Daily. Substance route: Smoking. Date of Last Use: 02/21/20. Last used yesterday. PCP. Substance amount: 3 blunts. Frequency of use: Daily. Substance route: Smoking. Date of Last Use: 02/20/20. Last used 3 days ago. History Source: Patient. Limitations to Obtaining History: No Limitations Medical History: Tubal ligation, Lithoptripsy Psychiatric History: Assessment conducted in the presence of Counselor Annabelle due to report that patient was observed walking to different patient's room (Male). Assessment conducted bedside. Patient presented as moderately sedated. Ms. Rodgers denies history of psychiatric hospitalizations and suicide attempts. She reports currently seeing a psychiatrist at [facility] and states that she is prescribed risperdal + remeron and other medications. Patient unsure of dosages but reports taking medications everyday. Ms. Rodgers reports a diagnosis of Anxiety disorder, schizophrenia, bipolar disorder and PTSD ( denies history of physical and sexual abuse). Patient questioned about her inappropriate behavior of spending time inside a male patient's room. Ms. Rodgers stated, " we were only exchanging numbers. Nothing happened. We exchanged numbers because he was leaving today." Patient denies auditory/ visua hallucinations. No psychosis noted. Physical/Sexual Abuse/Trauma History: denies. Mental Status Exam - Mental Status Exam Alert and Oriented to: Time, Place, Person Cognitive Function: Good Patient Appearance: Well Groomed Mood: Withdrawn Affect: Mood Congruent Patient Behavior: Fatigued (moderately fatigue) Speech Pattern: Delayed (Patient presents as moderately sedated but able to answer questions appropriately.) Voice Loudness: Moderately Soft/Quiet Thought Process: Goal Oriented Thought Disorder: Not Present Hallucinations: Denies Suicidal Ideation: Denies Homicidal Ideation: Denies Insight/Judgement: Poor Sleep: Fair Appetite: Fair Muscle strength/Tone: Normal Gait/Station: Normal Psychiatric Findings - Problem List ([place] 1, 2,3) (1) Alcohol use disorder Status: Acute (2) Cocaine dependence Status: Acute (3) History of bipolar disorder Status: Chronic Comment: Self reports. - Initial Treatment Plan Initial Treatment Plan: Psychoeducation provided. Detoxification in progress. Medications reviewed on external medication record. External records show a prescription of the following medications on 01/03/20. Wellbutrin 150mg HS + Risperdal 2mg HS + Remeron 15mg HS. Will order Wellbutrin 150mg daily+ Risperdal 2mg HS. Will hold Mirtazapine 15mg HS due to risk of oversedation. Benefits and side effects discussed. Verbal consent given.
[2020-02-23] MEDS: CEPHALEXIN MONOHYDRATE 500 MG CAPSULE (UD) PO SCH (10:59)
[2020-02-23 11:20] LABS: HEMATOCRIT 31.3 % (32.4-45.2); HEMOGLOBIN 10.2 GM/dL (10.7-15.3); MCH 29.3 pg (25.7-33.7); MCHC 32.7 g/dl (32.0-36.0); MEAN CELL VOLUME 89.6 fl (80-96); MEAN PLT VOLUME 8.5 fl (7.5-11.1); PLATELET COUNT 310 K/MM3 (134-434); RDW 16.6 % (11.6-15.6); WHITE BLOOD COUNT 8.7 K/mm3 (4.0-10.0)
[2020-02-23 11:31] LABS: CALCIUM 8.9 mg/dL (8.5-10.1)
[2020-02-23 11:32] LABS: ALBUMIN 3.2 g/dl (3.4-5.0); BLOOD UREA NITROGEN 8.1 mg/dL (7-18)
[2020-02-23 11:35] LABS: CREATININE 0.7 mg/dL (0.55-1.3)
[2020-02-23 11:36] LABS: BILIRUBIN,TOTAL 0.4 mg/dL (0.2-1); TOT PROT 6.4 g/dl (6.4-8.2)
--- NOTE | 2020-02-23 12:52 | PN ---
[facility] Progress Note Note: alert,oriented x3 ambulation on the unit multidisciplinary team consist of Sharon Alford nursing supervisor operations,Ksenia Painter RN,Annabelle Ruiz Counselor and myself all agreed for involuntary discharge, patient reminded for continue treatment for treatment for syphilis ,the next injection is on 02/28/20 and 03/06/20 and continue keflex 500 mgs po bid patient will be referred to [facility] for follow up care will see her medical provider and her psychiatrist for follow up left the unit in stable condition
--- NOTE | 2020-02-23 13:01 | DS ---
[facility] Detox Discharge Summary Admission Date: 02/22/20 Discharge Date: 02/23/20 - History Present History: Alcohol Dependence, Cocaine Dependence Additional Comments: alert,oriented x 3 ambulation on the unit no abdominal pain no edema of legs please see the note of involuntary discharge follow up with [facility],her medical provider and her own psychiatrist left the unit in stable condition Pertinent Past History: schizophrenia bipolar disorder ptsd history of syphilis - Physical Exam Results Vital Signs: Vital Signs Temperature 97.5 F L 02/23/20 08:40 Pulse Rate 100 H 02/23/20 08:40 Respiratory Rate 20 02/23/20 08:40 Blood Pressure 104/70 02/23/20 08:40 O2 Sat by Pulse Oximetry (%) 99 02/23/20 07:17 Pertinent Admission Physical Exam Findings: withdrawal signs and symptom Vital Signs Temperature 97.5 F L 02/23/20 08:40 Pulse Rate 100 H 02/23/20 08:40 Respiratory Rate 20 02/23/20 08:40 Blood Pressure 104/70 02/23/20 08:40 O2 Sat by Pulse Oximetry (%) 99 02/23/20 07:17 Laboratory Last Values WBC 8.7 K/mm3 (4.0-10.0) 02/23/20 07:42 RBC 3.50 M/mm3 (3.60-5.2) L 02/23/20 07:42 Hgb 10.2 GM/dL (10.7-15.3) L 02/23/20 07:42 Hct 31.3 % (32.4-45.2) L 02/23/20 07:42 MCV 89.6 fl (80-96) 02/23/20 07:42 MCH 29.3 pg (25.7-33.7) 02/23/20 07:42 MCHC 32.7 g/dl (32.0-36.0) 02/23/20 07:42 RDW 16.6 % (11.6-15.6) H 02/23/20 07:42 Plt Count 310 K/MM3 (134-434) D 02/23/20 07:42 MPV 8.5 fl (7.5-11.1) 02/23/20 07:42 Sodium 137 mmol/L (136-145) 02/23/20 07:42 Potassium 3.0 mmol/L (3.5-5.1) L 02/23/20 07:42 Chloride 104 mmol/L (98-107) 02/23/20 07:42 Carbon Dioxide 27 mmol/L (21-32) 02/23/20 07:42 Anion Gap 7 MMOL/L (8-16) L 02/23/20 07:42 BUN 8.1 mg/dL (7-18) 02/23/20 07:42 Creatinine 0.7 mg/dL (0.55-1.3) 02/23/20 07:42 Est GFR (CKD-EPI)AfAm 131.02 02/23/20 07:42 Est GFR (CKD-EPI)NonAf 113.04 02/23/20 07:42 Random Glucose 149 mg/dL (74-106) H 02/23/20 07:42 Calcium 8.9 mg/dL (8.5-10.1) 02/23/20 07:42 Total Bilirubin 0.4 mg/dL (0.2-1) 02/23/20 07:42 AST 6 U/L (15-37) L 02/23/20 07:42 ALT 13 U/L (13-61) 02/23/20 07:42 Alkaline Phosphatase 80 U/L (45-117) 02/23/20 07:42 Total Protein 6.4 g/dl (6.4-8.2) 02/23/20 07:42 Albumin 3.2 g/dl (3.4-5.0) L 02/23/20 07:42 Syphilis Serology Reactive (NONREACTIVE) A* 02/23/20 07:42 HIV Ag/Ab Combo Qual Negative (NEGATIVE) 02/23/20 07:42 - Medication Discharge Medications: Ambulatory Orders Cephalexin Monohydrate [Keflex -] 500 mg PO BID 7 Days #14 capsule 02/16/20 Bupropion HCl [Wellbutrin Xl -] 150 mg PO HS 02/22/20 Mirtazapine [Remeron -] 15 mg PO DAILY 02/22/20 Risperidone 2 mg PO HS 02/22/20 - Diagnosis (1) Alcohol use disorder Current Visit: Yes Status: Acute (2) Cocaine dependence Current Visit: Yes Status: Acute (3) History of bipolar disorder Current Visit: Yes Status: Chronic (4) Schizophrenia Current Visit: Yes Status: Acute (5) PTSD (post-traumatic stress disorder) Current Visit: Yes Status: Acute - AMA Did Patient Leave Against Medical Advice: No
[2020-02-23 13:15] VITALS: BP 102/61; PULSE 96; TEMP 97.8
[2020-02-23] MEDS ORDERED: risperiDONE 2 MG TABLET PO SCH (22:00)
[2020-02-24] MEDS ORDERED: chlordiazePOXIDE HCL 25 MG CAPSULE PO SCH (05:00)
[2020-02-25] MEDS ORDERED: chlordiazePOXIDE HCL 10 MG CAPSULE PO PRN
[2020-02-25] MEDS ORDERED: chlordiazePOXIDE HCL 10 MG CAPSULE PO SCH (05:00)
[2020-02-26] MEDS ORDERED: chlordiazePOXIDE HCL 10 MG CAPSULE PO SCH (05:00)
[2020-02-27] MEDS ORDERED: chlordiazePOXIDE HCL 10 MG CAPSULE PO ONE (05:00)
== END 2020-02-23 13:32 | disposition left against medical advice (07) | DRG 770 ==
LOC: YASAS 15:31 → Y3N 18:05
PROVIDERS: ADMIT Allergy & Immunology; ATTEND Allergy & Immunology
PROC: HZ2ZZZZ Detoxification Services for Substance Abuse Treatment (ICD-10-PCS; principal; 2020-02-21)
DX: F10.230 Alcohol dependence with withdrawal, uncomplicated (principal); F14.20 Cocaine dependence, uncomplicated; F16.20 Hallucinogen dependence, uncomplicated; F12.20 Cannabis dependence, uncomplicated; F17.210 Nicotine dependence, cigarettes, uncomplicated; F20.9 Schizophrenia, unspecified; F31.9 Bipolar disorder, unspecified; F41.9 Anxiety disorder, unspecified; F98.8 Other specified behavioral and emotional disorders with onset usually occurring in childhood and adolescence; A53.0 Latent syphilis, unspecified as early or late; Z87.09 Personal history of other diseases of the respiratory system; Z87.440 Personal history of urinary (tract) infections; Z87.442 Personal history of urinary calculi; Z98.51 Tubal ligation status; Z56.0 Unemployment, unspecified; Z59.0 Homelessness
CPT/HCPCS: 36415; 80053; 81025; 85027; 86593; 86780; 87389; C9803; U0003

== ENCOUNTER 2020-04-24 18:32 | Emergency (ER) | payer OTHER ==
[2020-04-24 18:57] VITALS: BP 117/71; PULSE 87; TEMP 98.3; BMI 21.9
== END 2020-04-24 20:28 | disposition home or self-care (01) ==
LOC: JER 18:32
DX: R05 Cough (principal); M79.10 Myalgia, unspecified site; Z20.828 Contact with and (suspected) exposure to other viral communicable diseases
CPT/HCPCS: 71046-TC-FY; 99284-25; C9803; U0003

== ENCOUNTER 2020-10-29 10:05 | Inpatient (IN) | payer OTHER ==
[2020-10-29 10:59] VITALS: BMI 25.0
[2020-10-29] MEDS ORDERED: ACETAMINOPHEN 325 MG TABLET (FP) PO PRN (16:20)
[2020-10-29] MEDS ORDERED: LOPERAMIDE HCL 2 MG CAPSULE PO PRN (16:20)
[2020-10-29] MEDS ORDERED: NICOTINE POLACRILEX 2 MG GUM BC PRN (16:20)
[2020-10-29] MEDS ORDERED: MAGNESIUM HYDROX 2400MG/30ML ORAL SUSPENSION 30 ML CUP PO PRN (16:20)
[2020-10-29] MEDS ORDERED: P-EPHED 60MG/TRIPROLIDI 2.5MG TABLET PO PRN (16:20)
[2020-10-29] MEDS ORDERED: MAGNESIUM CITRATE 300 ML BOTTLE PO PRN (16:20)
[2020-10-29] MEDS ORDERED: guaiFENesin 200 MG/10 ML 10 ML UNIT-DOSE CUPS PO PRN (16:20)
[2020-10-29] MEDS ORDERED: TUBERCULIN PPD 5 TU/0.1ML VIAL ID ONE (17:35)
[2020-10-29] MEDS: hydrOXYzine PAMOATE 25 MG CAPSULE (FP) PO SCH ×2 (18:08→21:05)
[2020-10-29] MEDS: NICOTINE 21 MG/24 HOURS TOPICAL PATCH TD SCH (18:12)
[2020-10-29] MEDS: MAG HYDROX/ALH/SMC/DPHA/LIDO 240 ML MOUTHWASH MM SCH (20:51)
[2020-10-29] MEDS: MELATONIN 5 MG TABLETS PO SCH (21:05)
[2020-10-29] MEDS: OLANZapine 2.5 MG TABLET PO SCH (21:05)
[2020-10-29] MEDS: THIAMINE HCL 100 MG TABLET (FP) PO SCH (21:05)
[2020-10-29] MEDS: PRAZOSIN HCL 1 MG CAPSULE PO SCH (21:06)
[2020-10-30] MEDS: MAG HYDROX/ALH/SMC/DPHA/LIDO 240 ML MOUTHWASH MM SCH ×5 (01:31→23:58)
[2020-10-30] MEDS: hydrOXYzine PAMOATE 25 MG CAPSULE (FP) PO SCH ×5 (06:59→21:03)
[2020-10-30 10:22] LABS: HEMATOCRIT 35.8 % (32.4-45.2); HEMOGLOBIN 11.6 GM/dL (10.7-15.3); MCH 28.8 pg (25.7-33.7); MCHC 32.4 g/dl (32.0-36.0); MEAN PLT VOLUME 7.6 fl (7.5-11.1); PLATELET COUNT 323 10^3/uL (134-434); RBC 4.03 M/mm3 (3.60-5.2); RDW 15.7 % (11.6-15.6); WHITE BLOOD COUNT 4.5 K/mm3 (4.0-10.0)
[2020-10-30 10:30] LABS: BLOOD UREA NITROGEN 13.5 mg/dL (7-18); CALCIUM 8.8 mg/dL (8.5-10.1)
[2020-10-30 10:31] LABS: ALBUMIN 3.6 g/dl (3.4-5.0)
[2020-10-30 10:33] LABS: CREATININE 0.9 mg/dL (0.55-1.3)
[2020-10-30 10:35] LABS: TOT PROT 6.8 g/dl (6.4-8.2)
[2020-10-30 10:37] LABS: BILIRUBIN,TOTAL 0.4 mg/dL (0.2-1)
[2020-10-30] MEDS: PRENATAL VITAMINS W/ FOLIC ACID TABLET (FP) PO SCH (10:55)
[2020-10-30] MEDS: NICOTINE 21 MG/24 HOURS TOPICAL PATCH TD SCH (10:55)
[2020-10-30] MEDS ORDERED: PT OWN MED DRAWER 7, Y5N ONE ×2 (11:25→11:26)
[2020-10-30] MEDS: THIAMINE HCL 100 MG TABLET (FP) PO SCH (21:03)
[2020-10-30] MEDS: MELATONIN 5 MG TABLETS PO SCH (21:03)
[2020-10-30] MEDS: OLANZapine 2.5 MG TABLET PO SCH (21:03)
[2020-10-30] MEDS: PRAZOSIN HCL 1 MG CAPSULE PO SCH (21:03)
[2020-10-30] MEDS: MAG HYDROX/AL HYDROX/SIMETH 30 ML UNIT-DOSE CUP PO PRN (21:04)
[2020-10-31 06:30] LABS: EPI CELLS >36 /uL (0-25.1); HYALINE CASTS 3 /uL (0-3.1); PH,URINE 6.5 (5.0-8.0); URINE APPEARANCE CLEAR; URINE BACTERIA 680 /uL (0-1359); URINE BILIRUBIN NEGATIVE (NEGATIVE); URINE COLOR YELLOW; URINE GLUCOSE (UA) NEGATIVE (NEGATIVE); URINE KETONE NEGATIVE (NEGATIVE); URINE LEUK ESTERASE 3+ (NEGATIVE); URINE NITRITE NEGATIVE (NEGATIVE); URINE PROTEIN NEGATIVE (NEGATIVE); URINE UROBILINOGEN 0.2 mg/dL (0.2-1.0); URINE WBC 48 /uL (0-25.8)
[2020-10-31] MEDS: hydrOXYzine PAMOATE 25 MG CAPSULE (FP) PO SCH (06:34)
[2020-10-31] MEDS: MAG HYDROX/ALH/SMC/DPHA/LIDO 240 ML MOUTHWASH MM SCH ×4 (06:34→23:49)
[2020-10-31] MEDS: PRENATAL VITAMINS W/ FOLIC ACID TABLET (FP) PO SCH (09:52)
[2020-10-31] MEDS: hydrOXYzine PAMOATE 25 MG CAPSULE (FP) PO PRN ×2 (09:52→15:43)
[2020-10-31] MEDS: NICOTINE 21 MG/24 HOURS TOPICAL PATCH TD SCH (09:52)
[2020-10-31] MEDS ORDERED: COLLOIDAL OATMEAL 1 BAR EACH TP PRN (11:12)
[2020-10-31] MEDS ORDERED: TUBERCULIN PPD 5 TU/0.1ML VIAL ID ONE (17:53)
[2020-10-31] MEDS: PRAZOSIN HCL 1 MG CAPSULE PO SCH (21:39)
[2020-10-31] MEDS: MELATONIN 5 MG TABLETS PO SCH (21:39)
[2020-10-31] MEDS: OLANZapine 2.5 MG TABLET PO SCH (21:39)
[2020-10-31] MEDS: THIAMINE HCL 100 MG TABLET (FP) PO SCH (21:39)
[2020-11-01] MEDS: hydrOXYzine PAMOATE 25 MG CAPSULE (FP) PO PRN ×2 (06:36→10:17)
[2020-11-01] MEDS: MAG HYDROX/ALH/SMC/DPHA/LIDO 240 ML MOUTHWASH MM SCH ×4 (07:04→23:34)
[2020-11-01] MEDS: PRENATAL VITAMINS W/ FOLIC ACID TABLET (FP) PO SCH (10:17)
[2020-11-01] MEDS: NICOTINE 21 MG/24 HOURS TOPICAL PATCH TD SCH (10:17)
[2020-11-01] MEDS: IBUPROFEN 400 MG TABLET (FP) PO PRN (12:13)
[2020-11-01] MEDS: OLANZapine 2.5 MG TABLET PO SCH (21:17)
[2020-11-01] MEDS: PRAZOSIN HCL 1 MG CAPSULE PO SCH (21:17)
[2020-11-01] MEDS: THIAMINE HCL 100 MG TABLET (FP) PO SCH (21:17)
[2020-11-01] MEDS: MELATONIN 5 MG TABLETS PO SCH (21:17)
[2020-11-02] MEDS: hydrOXYzine PAMOATE 25 MG CAPSULE (FP) PO PRN (06:38)
[2020-11-02] MEDS: MAG HYDROX/ALH/SMC/DPHA/LIDO 240 ML MOUTHWASH MM SCH ×3 (07:11→17:34)
[2020-11-02] MEDS: PRENATAL VITAMINS W/ FOLIC ACID TABLET (FP) PO SCH (10:33)
[2020-11-02] MEDS: NICOTINE 21 MG/24 HOURS TOPICAL PATCH TD SCH (10:33)
[2020-11-02 19:06] LABS: URINE APPEARANCE CLEAR; URINE BILIRUBIN NEGATIVE (NEGATIVE); URINE COLOR YELLOW; URINE GLUCOSE (UA) NEGATIVE (NEGATIVE); URINE KETONE NEGATIVE (NEGATIVE)
[2020-11-02 19:07] LABS: EPI CELLS 0-3 /uL (0-25.1); HYALINE CASTS 0 /uL (0-3.1); PH,URINE 6.5 (5.0-8.0); URINE BACTERIA FEW /uL (0-1359); URINE LEUK ESTERASE 1+ (NEGATIVE); URINE NITRITE NEGATIVE (NEGATIVE); URINE PROTEIN NEGATIVE (NEGATIVE); URINE RBC 0-5 /uL (0-23.9); URINE UROBILINOGEN 0.2 mg/dL (0.2-1.0)
[2020-11-02] MEDS: THIAMINE HCL 100 MG TABLET (FP) PO SCH ×2 (21:33→21:52)
[2020-11-02] MEDS: MELATONIN 5 MG TABLETS PO SCH (21:33)
[2020-11-02] MEDS: OLANZapine 2.5 MG TABLET PO SCH (21:33)
[2020-11-02] MEDS: PRAZOSIN HCL 1 MG CAPSULE PO SCH (21:33)
[2020-11-03] MEDS: MAG HYDROX/ALH/SMC/DPHA/LIDO 240 ML MOUTHWASH MM SCH ×4 (01:12→18:10)
[2020-11-03] MEDS: PRENATAL VITAMINS W/ FOLIC ACID TABLET (FP) PO SCH (10:43)
[2020-11-03] MEDS: NICOTINE 21 MG/24 HOURS TOPICAL PATCH TD SCH (13:09)
[2020-11-03] MEDS: hydrOXYzine PAMOATE 25 MG CAPSULE (FP) PO PRN (13:11)
[2020-11-03] MEDS: THIAMINE HCL 100 MG TABLET (FP) PO SCH (21:13)
[2020-11-03] MEDS: MELATONIN 5 MG TABLETS PO SCH (21:13)
[2020-11-03] MEDS: OLANZapine 2.5 MG TABLET PO SCH (21:13)
[2020-11-03] MEDS: PRAZOSIN HCL 1 MG CAPSULE PO SCH (21:13)
[2020-11-04] MEDS: MAG HYDROX/ALH/SMC/DPHA/LIDO 240 ML MOUTHWASH MM SCH ×5 (01:11→17:59)
[2020-11-04] MEDS: PRENATAL VITAMINS W/ FOLIC ACID TABLET (FP) PO SCH (10:32)
[2020-11-04] MEDS: NICOTINE 21 MG/24 HOURS TOPICAL PATCH TD SCH (10:32)
[2020-11-04] MEDS: hydrOXYzine PAMOATE 25 MG CAPSULE (FP) PO PRN ×2 (12:38→16:04)
[2020-11-04] MEDS: IBUPROFEN 400 MG TABLET (FP) PO PRN ×2 (12:39→19:42)
[2020-11-04] MEDS: OLANZapine 2.5 MG TABLET PO SCH (21:31)
[2020-11-04] MEDS: PRAZOSIN HCL 1 MG CAPSULE PO SCH (21:31)
[2020-11-04] MEDS: MELATONIN 5 MG TABLETS PO SCH (21:31)
[2020-11-04] MEDS: THIAMINE HCL 100 MG TABLET (FP) PO SCH (21:32)
[2020-11-05] MEDS: MAG HYDROX/ALH/SMC/DPHA/LIDO 240 ML MOUTHWASH MM SCH ×5 (02:29→23:43)
[2020-11-05] MEDS: NICOTINE 21 MG/24 HOURS TOPICAL PATCH TD SCH (11:39)
[2020-11-05] MEDS: hydrOXYzine PAMOATE 25 MG CAPSULE (FP) PO PRN ×2 (11:39→21:08)
[2020-11-05] MEDS: PRENATAL VITAMINS W/ FOLIC ACID TABLET (FP) PO SCH (11:39)
[2020-11-05] MEDS: METHOCARBAMOL 500 MG TABLET PO PRN ×2 (11:40→21:08)
[2020-11-05] MEDS: IBUPROFEN 400 MG TABLET (FP) PO PRN (15:58)
[2020-11-05] MEDS ORDERED: PT OWN MED DRAWER 7, Y5N ONE (18:39)
[2020-11-05] MEDS: MELATONIN 5 MG TABLETS PO SCH (21:07)
[2020-11-05] MEDS: OLANZapine 2.5 MG TABLET PO SCH (21:08)
[2020-11-05] MEDS: THIAMINE HCL 100 MG TABLET (FP) PO SCH (21:08)
[2020-11-05] MEDS: PRAZOSIN HCL 1 MG CAPSULE PO SCH (21:52)
[2020-11-06] MEDS: MAG HYDROX/ALH/SMC/DPHA/LIDO 240 ML MOUTHWASH MM SCH ×4 (07:26→23:07)
[2020-11-06] MEDS: NICOTINE 21 MG/24 HOURS TOPICAL PATCH TD SCH (10:22)
[2020-11-06] MEDS: PRENATAL VITAMINS W/ FOLIC ACID TABLET (FP) PO SCH (10:22)
[2020-11-06] MEDS: IBUPROFEN 400 MG TABLET (FP) PO PRN (11:53)
[2020-11-06] MEDS: hydrOXYzine PAMOATE 25 MG CAPSULE (FP) PO PRN (12:45)
[2020-11-06] MEDS ORDERED: TUBERCULIN PPD 5 TU/0.1ML VIAL ID ONE (16:59)
[2020-11-06] MEDS: OLANZapine 2.5 MG TABLET PO SCH (21:26)
[2020-11-06] MEDS: MELATONIN 5 MG TABLETS PO SCH (21:26)
[2020-11-06] MEDS: PRAZOSIN HCL 1 MG CAPSULE PO SCH (21:26)
[2020-11-06] MEDS: THIAMINE HCL 100 MG TABLET (FP) PO SCH (21:27)
[2020-11-07] MEDS: MAG HYDROX/ALH/SMC/DPHA/LIDO 240 ML MOUTHWASH MM SCH ×4 (07:44→23:22)
[2020-11-07 08:10] VITALS: TEMP 97.1
[2020-11-07] MEDS: NICOTINE 21 MG/24 HOURS TOPICAL PATCH TD SCH (10:20)
[2020-11-07] MEDS: PRENATAL VITAMINS W/ FOLIC ACID TABLET (FP) PO SCH (10:20)
[2020-11-07] MEDS: hydrOXYzine PAMOATE 25 MG CAPSULE (FP) PO PRN (11:20)
[2020-11-07] MEDS: IBUPROFEN 400 MG TABLET (FP) PO PRN (13:57)
[2020-11-07] MEDS: MELATONIN 5 MG TABLETS PO SCH (21:09)
[2020-11-07] MEDS: OLANZapine 2.5 MG TABLET PO SCH (21:09)
[2020-11-07] MEDS: PRAZOSIN HCL 1 MG CAPSULE PO SCH (21:10)
[2020-11-07] MEDS: THIAMINE HCL 100 MG TABLET (FP) PO SCH (21:10)
[2020-11-07] MEDS: METHOCARBAMOL 500 MG TABLET PO PRN (21:10)
[2020-11-08] MEDS ORDERED: PT OWN MED DRAWER 7, Y5N ONE (03:52)
[2020-11-08] MEDS ORDERED: TUBERCULIN PPD 5 TU/0.1ML VIAL ID ONE (03:53)
[2020-11-08] MEDS: MAG HYDROX/ALH/SMC/DPHA/LIDO 240 ML MOUTHWASH MM SCH ×3 (07:03→17:39)
[2020-11-08] MEDS: hydrOXYzine PAMOATE 25 MG CAPSULE (FP) PO PRN (09:42)
[2020-11-08] MEDS: NICOTINE 21 MG/24 HOURS TOPICAL PATCH TD SCH (09:42)
[2020-11-08] MEDS: PRENATAL VITAMINS W/ FOLIC ACID TABLET (FP) PO SCH (09:42)
[2020-11-08] MEDS: THIAMINE HCL 100 MG TABLET (FP) PO SCH (21:19)
[2020-11-08] MEDS: PRAZOSIN HCL 1 MG CAPSULE PO SCH (21:19)
[2020-11-08] MEDS: MELATONIN 5 MG TABLETS PO SCH (21:19)
[2020-11-08] MEDS: OLANZapine 2.5 MG TABLET PO SCH (21:19)
[2020-11-08] MEDS: METHOCARBAMOL 500 MG TABLET PO PRN (21:20)
[2020-11-09] MEDS: MAG HYDROX/ALH/SMC/DPHA/LIDO 240 ML MOUTHWASH MM SCH ×5 (00:56→23:45)
[2020-11-09] MEDS: hydrOXYzine PAMOATE 25 MG CAPSULE (FP) PO PRN (00:56)
[2020-11-09] MEDS ORDERED: diphenhydrAMINE HCL 25 MG CAPSULE (FP) PO ONE (10:22)
[2020-11-09] MEDS ORDERED: HYDROCORTISONE 0.5% TOPICAL OINTMENT TUBE TP PRN (10:22)
[2020-11-09] MEDS: NICOTINE 21 MG/24 HOURS TOPICAL PATCH TD SCH (10:41)
[2020-11-09] MEDS: PRENATAL VITAMINS W/ FOLIC ACID TABLET (FP) PO SCH (10:41)
[2020-11-09] MEDS ORDERED: HYDROCORTISONE 0.5% TOPICAL CREAM 30 GM TUBE TP PRN (11:30)
[2020-11-09] MEDS: METHOCARBAMOL 500 MG TABLET PO PRN (21:25)
[2020-11-09] MEDS: OLANZapine 2.5 MG TABLET PO SCH (21:25)
[2020-11-09] MEDS: PRAZOSIN HCL 1 MG CAPSULE PO SCH (21:25)
[2020-11-09] MEDS: SUVOREXANT 10 MG TABLET PO PRN (21:26)
[2020-11-09] MEDS: THIAMINE HCL 100 MG TABLET (FP) PO SCH (21:27)
[2020-11-10] MEDS: MAG HYDROX/ALH/SMC/DPHA/LIDO 240 ML MOUTHWASH MM SCH ×3 (07:12→17:51)
[2020-11-10] MEDS ORDERED: PT OWN MED DRAWER 7, Y5N ONE (07:13)
[2020-11-10] MEDS: MAG HYDROX/AL HYDROX/SIMETH 30 ML UNIT-DOSE CUP PO PRN (08:45)
[2020-11-10] MEDS: hydrOXYzine PAMOATE 25 MG CAPSULE (FP) PO PRN ×2 (10:45→13:53)
[2020-11-10] MEDS: METHOCARBAMOL 500 MG TABLET PO PRN (10:45)
[2020-11-10] MEDS: NICOTINE 21 MG/24 HOURS TOPICAL PATCH TD SCH (10:52)
[2020-11-10] MEDS: PRENATAL VITAMINS W/ FOLIC ACID TABLET (FP) PO SCH (10:52)
[2020-11-10 20:32] VITALS: BP 114/68; PULSE 82
[2020-11-10] MEDS: PRAZOSIN HCL 1 MG CAPSULE PO SCH (21:16)
[2020-11-10] MEDS: OLANZapine 2.5 MG TABLET PO SCH (21:16)
[2020-11-10] MEDS: THIAMINE HCL 100 MG TABLET (FP) PO SCH (21:16)
[2020-11-10] MEDS: SUVOREXANT 10 MG TABLET PO PRN (21:17)
[2020-11-11] MEDS: MAG HYDROX/ALH/SMC/DPHA/LIDO 240 ML MOUTHWASH MM SCH ×3 (07:31→17:06)
[2020-11-11] MEDS: NICOTINE 21 MG/24 HOURS TOPICAL PATCH TD SCH (11:29)
[2020-11-11] MEDS: PRENATAL VITAMINS W/ FOLIC ACID TABLET (FP) PO SCH (11:30)
[2020-11-11] MEDS ORDERED: TUBERCULIN PPD 5 TU/0.1ML VIAL ID ONE (14:41)
[2020-11-11] MEDS: hydrOXYzine PAMOATE 25 MG CAPSULE (FP) PO PRN (14:42)
[2020-11-11] MEDS: SUVOREXANT 10 MG TABLET PO PRN (21:18)
[2020-11-11] MEDS: THIAMINE HCL 100 MG TABLET (FP) PO SCH (21:18)
[2020-11-11] MEDS: PRAZOSIN HCL 1 MG CAPSULE PO SCH (21:18)
[2020-11-11] MEDS: OLANZapine 2.5 MG TABLET PO SCH (21:18)
[2020-11-12] MEDS: MAG HYDROX/ALH/SMC/DPHA/LIDO 240 ML MOUTHWASH MM SCH ×2 (00:18→06:50)
[2020-11-12] MEDS: PRENATAL VITAMINS W/ FOLIC ACID TABLET (FP) PO SCH (09:02)
[2020-11-12] MEDS: NICOTINE 21 MG/24 HOURS TOPICAL PATCH TD SCH (09:03)
[2020-11-12] MEDS ORDERED: SUVOREXANT 10 MG TABLET PO PRN (22:00)
== END 2020-11-12 09:30 | disposition home or self-care (01) | DRG 772 ==
LOC: YASAS 10:05 → Y3W 15:56
PROVIDERS: ADMIT Allergy & Immunology; ATTEND Allergy & Immunology
PROC: HZ42ZZZ Group Counseling for Substance Abuse Treatment, Cognitive-Behavioral (ICD-10-PCS; principal; 2020-10-29)
DX: F10.20 Alcohol dependence, uncomplicated (principal); F14.20 Cocaine dependence, uncomplicated; F16.20 Hallucinogen dependence, uncomplicated; F17.210 Nicotine dependence, cigarettes, uncomplicated; F19.282 Other psychoactive substance dependence with psychoactive substance-induced sleep disorder; F19.280 Other psychoactive substance dependence with psychoactive substance-induced anxiety disorder; F31.9 Bipolar disorder, unspecified; F20.9 Schizophrenia, unspecified; F43.10 Post-traumatic stress disorder, unspecified; F41.9 Anxiety disorder, unspecified; A53.0 Latent syphilis, unspecified as early or late; Z86.2 Personal history of diseases of the blood and blood-forming organs and certain disorders involving the immune mechanism; Z87.442 Personal history of urinary calculi; Z87.440 Personal history of urinary (tract) infections; Z91.410 Personal history of adult physical and sexual abuse
CPT/HCPCS: 36415; 80053; 81003; 81025; 85027; 86593; 86780; C9803; U0003; U0005

== ENCOUNTER 2021-01-08 13:10 | Emergency (ER) | payer OTHER ==
[2021-01-08 13:20] VITALS: BP 103/83; TEMP 98.2; BMI 27.4
[2021-01-08] MEDS ORDERED: MAG HYDROX/AL HYDROX/SIMETH -MYLANTA- ORAL SUSPENSION PO ONE (13:51)
[2021-01-08] MEDS ORDERED: FAMOTIDINE 20 MG/50 ML IVPB 20 MG/50 ML MG IVPB ONE ×2 (13:51→14:08)
[2021-01-08] MEDS ORDERED: SODIUM CHLORIDE 1,000 ML IV STA (13:52)
[2021-01-08] MEDS ORDERED: ONDANSETRON 4 MG/2 ML VIAL IVPUSH ONE (13:53)
[2021-01-08] MEDS ORDERED: MAG HYDROX/AL HYDROX/SIMETH 30 ML UNIT-DOSE CUP ONE (14:08)
[2021-01-08] MEDS ORDERED: ONDANSETRON 4 MG/2 ML VIAL ONE (14:08)
[2021-01-08 14:44] LABS: BASO % 0.6 % (0-2.0); EOS % 0.9 % (0-4.5); HEMOGLOBIN 11.9 GM/dL (10.7-15.3); LYMPH % 21.8 % (8-40); MCH 29.8 pg (25.7-33.7); MCHC 34.1 g/dl (32.0-36.0); MEAN CELL VOLUME 87.3 fl (80-96); MEAN PLT VOLUME 7.5 fl (7.5-11.1); MONO % 8.2 % (3.8-10.2); NEUT % 68.5 % (42.8-82.8); PLATELET COUNT 303 10^3/uL (134-434); RBC 4.01 M/mm3 (3.60-5.2); RDW 14.7 % (11.6-15.6); WHITE BLOOD COUNT 5.3 K/mm3 (4.0-10.0)
[2021-01-08 14:49] LABS: PH,URINE 7.5 (5.0-8.0); URINE APPEARANCE CLEAR; URINE BILIRUBIN NEGATIVE (NEGATIVE); URINE COLOR YELLOW; URINE GLUCOSE (UA) NEGATIVE (NEGATIVE); URINE KETONE NEGATIVE (NEGATIVE); URINE LEUK ESTERASE NEGATIVE (NEGATIVE); URINE NITRITE NEGATIVE (NEGATIVE); URINE PROTEIN NEGATIVE (NEGATIVE); URINE UROBILINOGEN 0.2 mg/dL (0.2-1.0)
[2021-01-08 14:52] LABS: HCG,QUALITATIVE URINE Negative
[2021-01-08 15:07] LABS: CHLORIDE 106 mmol/L (98-107); SODIUM 139 mmol/L (136-145)
[2021-01-08 15:09] LABS: CALCIUM 8.8 mg/dL (8.5-10.1); GLUCOSE,RANDOM 93 mg/dL (74-106)
[2021-01-08 15:10] LABS: ALBUMIN 3.4 g/dl (3.4-5.0); ANION GAP 7 MMOL/L (8-16); BLOOD UREA NITROGEN 10.5 mg/dL (7-18); CO2 27 mmol/L (21-32); LIPASE 68 U/L (73-393); MAGNESIUM 1.8 mg/dL (1.8-2.4)
[2021-01-08 15:13] LABS: CREATININE 0.6 mg/dL (0.55-1.3); SGOT/AST 12 U/L (15-37); SGPT/ALT 20 U/L (13-61)
[2021-01-08 15:14] LABS: BILIRUBIN,TOTAL 0.4 mg/dL (0.2-1); TOT PROT 6.8 g/dl (6.4-8.2)
[2021-01-08 15:15] LABS: ALK PHOS 96 U/L (45-117)
[2021-01-08] MEDS ORDERED: ACETAMINOPHEN INJECTION 100 ML IVPB ONE (15:43)
[2021-01-08] MEDS ORDERED: ACETAMINOPHEN 1000 MG/100 ML VIAL (NON FORMULARY) IVPB ONE (15:43)
[2021-01-08 17:45] VITALS: PULSE 61
== END 2021-01-08 17:45 | disposition home or self-care (01) ==
LOC: JER 13:10
PROC: 3E0333Z Introduction of Anti-inflammatory into Peripheral Vein, Percutaneous Approach (ICD-10-PCS; principal; 2021-01-08)
PROC: 3E033GC Introduction of Other Therapeutic Substance into Peripheral Vein, Percutaneous Approach (ICD-10-PCS; 2021-01-08)
PROC: 3E0337Z Introduction of Electrolytic and Water Balance Substance into Peripheral Vein, Percutaneous Approach (ICD-10-PCS; 2021-01-08)
DX: R10.13 Epigastric pain (principal)
CPT/HCPCS: 36415; 80053; 81003; 82550; 83690; 83735; 84484; 84703; 85025; 87077; 87086; 93005; 93010; 96361; 96374; 96375; 99284-25; C9803; J0131; U0003; U0005

== ENCOUNTER 2021-07-05 10:45 | Emergency (ER) | payer OTHER ==
[2021-07-05 12:01] VITALS: TEMP 98; BMI 27.4
[2021-07-05 14:06] LABS: EOS % 1.5 % (0-4.5); HEMATOCRIT 36.6 % (32.4-45.2); HEMOGLOBIN 12.6 GM/dL (10.7-15.3); LYMPH % 29.1 % (8-40); MCH 30.4 pg (25.7-33.7); MCHC 34.4 g/dl (32.0-36.0); MEAN CELL VOLUME 88.4 fl (80-96); MEAN PLT VOLUME 7.3 fl (7.5-11.1); MONO % 9.4 % (3.8-10.2); PLATELET COUNT 357 10^3/uL (134-434); RBC 4.13 M/mm3 (3.60-5.2); RDW 14.4 % (11.6-15.6); WHITE BLOOD COUNT 5.1 K/mm3 (4.0-10.0)
[2021-07-05] MEDS ORDERED: ONDANSETRON HCL 4 MG/5 ML BULK BOTTLE PO ONE (14:26)
[2021-07-05] MEDS ORDERED: ACETAMINOPHEN 325 MG TABLET (FP) PO ONE (14:26)
[2021-07-05 14:28] LABS: EPI CELLS 19 /uL (0-25.1); HCG,QUALITATIVE URINE Negative; HYALINE CASTS 1 /uL (0-3.1); PH,URINE 5.5 (5.0-8.0); URINE APPEARANCE CLEAR; URINE BACTERIA 125 /uL (0-1359); URINE BILIRUBIN NEGATIVE (NEGATIVE); URINE COLOR YELLOW; URINE GLUCOSE (UA) NEGATIVE (NEGATIVE); URINE KETONE TRACE (NEGATIVE); URINE LEUK ESTERASE NEGATIVE (NEGATIVE); URINE NITRITE NEGATIVE (NEGATIVE); URINE PROTEIN NEGATIVE (NEGATIVE); URINE RBC 16 /uL (0-23.9); URINE WBC 14 /uL (0-25.8)
[2021-07-05 14:34] LABS: CALCIUM 9.4 mg/dL (8.5-10.1)
[2021-07-05 14:35] LABS: ALBUMIN 3.8 g/dl (3.4-5.0)
[2021-07-05] MEDS ORDERED: ACETAMINOPHEN 325 MG TABLET (FP) ONE (14:37)
[2021-07-05 14:38] LABS: CREATININE 0.9 mg/dL (0.55-1.3)
[2021-07-05 14:40] LABS: BILIRUBIN,TOTAL 0.5 mg/dL (0.2-1); TOT PROT 7.3 g/dl (6.4-8.2)
[2021-07-05] MEDS ORDERED: ONDANSETRON *ODT* 4 MG TABLET ONE (14:40)
[2021-07-05] MEDS ORDERED: FAMOTIDINE 10 MG TABLET PO ONE (15:02)
[2021-07-05] MEDS ORDERED: FAMOTIDINE 10 MG TABLET ONE (15:32)
[2021-07-05 16:47] VITALS: BP 112/68; PULSE 68
== END 2021-07-05 16:15 | disposition home or self-care (01) ==
LOC: JER 10:45
DX: R10.12 Left upper quadrant pain (principal)
CPT/HCPCS: 36415; 74176-TC; 80053; 81003; 82550; 83690; 84703; 85025; 87077; 87086; 99285-25

== ENCOUNTER 2022-05-16 11:47 | Emergency (ER) | payer OTHER ==
[2022-05-16] MEDS ORDERED: predniSONE 20 MG TABLET (UD) PO ONE (12:01)
[2022-05-16] MEDS ORDERED: diphenhydrAMINE HCL 50 MG CAPSULE PO ONE (12:02)
[2022-05-16] MEDS ORDERED: FAMOTIDINE 10 MG TABLET PO ONE (12:04)
[2022-05-16 12:07] VITALS: BP 107/66; PULSE 65; RESP 20; TEMP 98.3; BMI 29.2
[2022-05-16] MEDS ORDERED: diphenhydrAMINE HCL 25 MG CAPSULE (FP) PO ONE (12:08)
[2022-05-16] MEDS ORDERED: predniSONE 20 MG TABLET (UD) ONE (12:08)
[2022-05-16] MEDS ORDERED: FAMOTIDINE 20 MG TABLET ONE (12:08)
== END 2022-05-16 13:34 | disposition home or self-care (01) ==
LOC: JERFT 11:47 → JER 11:47 → JERFT 13:34
DX: L50.9 Urticaria, unspecified (principal)
CPT/HCPCS: 99283-25